=== PATIENT | male | born 1955 | race Caucasian/White ===

== ENCOUNTER 2017-03-04 21:43 | Emergency (ER) | payer BC ==
[2017-03-04] MEDS ORDERED: Oxymetazoline HCl 0.05% ( 15 ML ) ONE (21:59)
== END 2017-03-04 22:25 | disposition home or self-care (01) ==
LOC: SCSER 21:43
DX: R04.0 Epistaxis (principal); E03.9 Hypothyroidism, unspecified; Z85.850 Personal history of malignant neoplasm of thyroid; F17.290 Nicotine dependence, other tobacco product, uncomplicated
CPT/HCPCS: 30901

== ENCOUNTER 2018-08-02 08:42 | Outpatient (CLI) | payer BC ==
--- NOTE | 2018-08-02 09:53 | CT ---
Exam: CT angiogram of the chest HISTORY: Aortic root enlargement suggested on recent cardiac echo. COMPARISON: None TECHNIQUE: CT angiogram of the chest is performed in the axial plane. Three-dimensional reformatted i mages are submitted for interpretation FINDINGS: Mediastinum: Anterior mediastinum has a 2.9 x 2.2 cm soft tissue mass. There is associated punctate c alcifications. HEART: Normal size. No significant pericardial fluid. Aorta: No aneurysm or dissection Upper solid abdominal viscera: No abnormality enhancement. Trachea and central bronchi: Patent Pleural spaces: No effusion Lung parenchyma: No masses or consolidation. Pneumothorax: None Osseous structures: No lytic or blastic lesions Pulmonary arteries: Adequate contrast opacification pulmonary arterial system to the level of central pulmonary arteries. No filling defect to suggest pulmonary embolism IMPRESSION: 1. No evidence of aneurysmal dilatation of the aorta, including the aortic root. 2. Soft tissue mass in the mediastinum may represent an enlarged lymph node, presumably metastatic. T hymic tumor cannot be excluded. Results of study discussed with Dr. Ramachandran 08/02/2018 9:45 AM Code CR
== END 2018-08-02 08:43 | disposition home or self-care (01) ==
LOC: SCSCT 08:42
PROVIDERS: ATTEND Internal Medicine Cardiovascular Disease
DX: I77.89 Other specified disorders of arteries and arterioles (principal); J98.59 Other diseases of mediastinum, not elsewhere classified
CPT/HCPCS: 71275; 82565

== ENCOUNTER 2018-12-31 14:36 | Emergency (ER) | payer BC ==
[~2018-12-31 14:36] MED LIST: Iopamidol 370 76% 100 ML VIAL ONE
--- NOTE | 2018-12-31 15:16 | RAD ---
EXAM: Chest Two Views 12/31/2018 3:12 PM HISTORY: Chest pain COMPARISON: CTA of the thorax dated August 02, 2018 FINDINGS: Heart: Normal in size and contour. Pulmonary vessels: Normal. Costophrenic angles: Clear. Lungs: There are bilateral pulmonary nodules now demonstrated suspicious for pulmonary metastatic dis ease. One of the largest is seen within the right upper lobe measuring 2.4 cm. Pneumothorax: None. Osseous structures:Intact. Additional findings: There is a enlarged anterior mediastinal mass measuring 12.4 x 11 cm. IMPRESSION: Enlarging anterior mediastinal mass with interval development of bilateral pulmonary metastatic lesio ns. Dedicated CT of the thorax with IV contrast is recommended for additional characterization.
[2018-12-31 15:28] LABS: #Basophils 0.1 thou/uL (0.0-0.2); #Eosinphils 0.2 thou/uL (0.0-0.7); #Lymphocytes 1.9 thou/uL (1.20-3.40); #Monocytes 0.8 thou/uL (0.11-0.59); #Neutrophils 7.4 thou/uL (1.40-6.50); %Basophils 0.9 % (0.0-1.0); %Eosinophils 2.3 % (0.0-10.0); %Lymphocytes 18.5 % (21.0-51.0); %Monocytes 7.3 % (0.0-10.0); Hemoglobin 14.9 g/dL (14.0-18.0); Mean Corpuscular HGB CONC 35.1 g/dL (32.0-36.0); Mean Corpuscular Hemoglobin 31.5 pg (27.0-31.0); Mean Corpuscular Volume 89.9 fL (78.0-98.0); Mean Platelet Volume 6.9 fL (7.4-10.4); Platelet Count 263 thou/uL (130-400); RBC Distribution Width 12.6 % (11.5-14.5); Red Blood Cell (RBC) Count 4.71 mill/uL (4.70-6.10); White Blood Cell (WBC) Count 10.4 thou/uL (4.8-10.8)
[2018-12-31] MEDS ORDERED: Fentanyl 100 MCG/2 ML VIAL ONE (15:44)
[2018-12-31 15:55] LABS: ALT (SGPT) 13 U/L (8-55); AST (SGOT) 16 U/L (5-34); Albumin 4.6 g/dL (3.4-4.8); Alkaline Phosphatase 92 U/L (40-110); Anion Gap 12 mmol/L (10-20); BUN (Urea Nitrogen) 16 mg/dL (8.4-25.7); Bilirubin, Total 0.6 mg/dL (0.2-1.2); CK (CPK) 57 U/L (30-200); Calc. Creatinine Clearance 0 mL/min (70-130); Calcium 9.3 mg/dL (7.8-10.44); Carbon Dioxide 27 mmol/L (23-31); Chloride 101 mmol/L (98-107); Estimated GFR-MDRD 78; Glucose 111 mg/dL (80-115); Lipase 22 U/L (8-78); Potassium 3.9 mmol/L (3.5-5.1); Protein, Total 6.6 g/dL (5.8-8.1); Sodium 136 mmol/L (136-145)
[2018-12-31] MEDS ORDERED: Bisacodyl 10 MG SUPP PR PRN (16:23)
[2018-12-31] MEDS ORDERED: Senokot S 8.6-50 MG TAB PO PRN (16:23)
[2018-12-31] MEDS ORDERED: Acetaminophen 325 MG TAB PO PRN (16:23)
[2018-12-31] MEDS ORDERED: Guaifenesin DM 100-10/5 ML UDCUP PO PRN (16:23)
--- NOTE | 2018-12-31 16:44 | CT ---
Chest abdomen and pelvic CT scan with IV contrast: HISTORY: Lung metastasis, mediastinal mass recent right sided chest pain COMPARISON: CT angiogram chest 08/02/2018 FINDINGS: Huge 6.6 x 10.6 cm diameter anterior mediastinal mass markedly increasing in size from the prior stud y at which time it was 2.2 x 2.9 cm. Extensive bilateral new pulmonary metastasis up to 3.9 cm in the right lower lobe, pleural-based. There are several small poorly defined low-attenuation densities within the liver up to approximately 1.1 cm in size, nonspecific, conceivably these could represent very early metastasis. Gallbladder and common duct, pancreas, spleen, adrenal glands are un remarkable. No evidence for renal calculus or acute obstruction. Scattered colonic diverticulosis without acute diverticulitis. Normal-appearing appendix. No retroperitoneal or pelvic adenopathy. No evidence for definitive bone metastasis. IMPRESSION: Large anterior mediastinal mass showing marked increase in size. Extensive new pulmonary metastasis as above. CODE T
[2018-12-31] MEDS ORDERED: Famotidine 20 MG TAB PO SCH (21:00)
[2019-01-01] MEDS ORDERED: Enoxaparin Sodium 40 MG/0.4 ML SYRINGE SC SCH (09:00)
== END 2018-12-31 18:38 | disposition home or self-care (01) ==
LOC: ERS 14:36
DX: J98.59 Other diseases of mediastinum, not elsewhere classified (principal); C78.01 Secondary malignant neoplasm of right lung; E03.9 Hypothyroidism, unspecified; Z85.850 Personal history of malignant neoplasm of thyroid; Z87.891 Personal history of nicotine dependence; Z79.899 Other long term (current) drug therapy
CPT/HCPCS: 36415; 71046; 71260; 74177; 80053; 82550; 83690; 83880; 84443; 84484; 85025; 85379; 93005; 96361; 96374; J3010; Q9967

== ENCOUNTER 2019-02-03 21:35 | Inpatient (IN) | payer BC, MEDICARE ==
[2019-02-03 23:20] LABS: Hemoglobin 10.9 g/dL (14.0-18.0); Mean Corpuscular HGB CONC 33.9 g/dL (32.0-36.0); Mean Corpuscular Hemoglobin 30.2 pg (27.0-31.0); Mean Corpuscular Volume 89.1 fL (78.0-98.0); White Blood Cell (WBC) Count 0.4 thou/uL (4.8-10.8)
[2019-02-03 23:21] LABS: Mean Platelet Volume 7.1 fL (7.4-10.4); Platelet Count 71 thou/uL (130-400); Platelet Morphology Comment Appears Decreased
[2019-02-03 23:27] LABS: ALT (SGPT) 61 U/L (8-55); AST (SGOT) 47 U/L (5-34); Albumin 3.3 g/dL (3.4-4.8); Alkaline Phosphatase 118 U/L (40-110); Anion Gap 11 mmol/L (10-20); BUN (Urea Nitrogen) 14 mg/dL (8.4-25.7); Bilirubin, Total 0.7 mg/dL (0.2-1.2); Calc. Creatinine Clearance 0 mL/min (70-130); Calcium 8.1 mg/dL (7.8-10.44); Carbon Dioxide 26 mmol/L (23-31); Chloride 104 mmol/L (98-107); Estimated GFR-MDRD Greater than 90; Globulin 2.2 g/dL (2.4-3.5); Glucose 142 mg/dL (80-115); Lipase 13 U/L (8-78); Potassium 3.8 mmol/L (3.5-5.1); Protein, Total 5.5 g/dL (5.8-8.1); Sodium 137 mmol/L (136-145)
[2019-02-03] MEDS ORDERED: Cefepime 2 GM VIAL ONE (23:42)
--- NOTE | 2019-02-04 00:01 | RAD ---
2 views of the chest: 02/04/2019 COMPARISON: 12/31/2018 HISTORY: Fever FINDINGS: There is a large mass within the right mid lung zone medially/right hilar region, measuring approximately 17-18 cm in craniocaudal dimension, increased from the prior study at which time it measured 11 cm. Multiple bilateral pulmonary nodules are noted, enlarged since the prior exam. Small bilateral pleural effusions are noted. Drainage catheter overlies the right lung base. Right-sided PICC terminates at the level of the cavoatrial junction. IMPRESSION: Large mass within the right hemithorax, enlarged since the prior exam. Multiple enlarging pulmonary nodules. Findings are consistent with aggressive malignancy. No pneumothorax noted on either side.
[2019-02-04 01:50] VITALS: BMI 28.1
[2019-02-04] MEDS ORDERED: Acetaminophen 325 MG TAB PO PRN (02:31)
[2019-02-04] MEDS ORDERED: Prochlorperazine Maleate 5 MG TAB PO PRN (04:44)
[2019-02-04] MEDS ORDERED: Ondansetron ODT 8 MG TAB PO PRN (04:44)
[2019-02-04] MEDS ORDERED: Morphine IR Tab 15 MG TAB PO PRN (04:44)
[2019-02-04] MEDS: Cefepime 2 GM in Sodium Chloride 0.9% 100 ML IVPB SCH ×3 (05:32→22:09)
--- NOTE | 2019-02-04 05:37 | HP ---
PRIMARY CARE PHYSICIAN: Dr. Jamison. ONCOLOGIST: Dr. William Way at [facility] in [place]. CHIEF COMPLAINT: Fever at home. HISTORY OF PRESENT ILLNESS: Mr. Anthony is a 64-year-old gentleman, who has a history of sarcoma. He is currently receiving treatment at [facility]. He had his 1st round of chemotherapy on January 25 and apparently the treatment is a one day treatment, which is every 21 days. He recently went back to [facility] in order to have what he called the chest tube challenge in order to see whether or not the chest tube could be removed as he had recently developed a pneumothorax after having a biopsy. He said they were able to remove the chest tube. He does have an indwelling Hero catheter in order to drain a malignant pleural effusion. He had the chest tube removed and he was doing well until about 8:45 yesterday morning when he developed a fever. His temperature was 102. At that time, he had been having a cough off and on, which was initially productive of some whitish phlegm, but is now a dry cough. He also notes some pain on the right side of his chest, but he attributes that to the pleural effusion. Otherwise, he does not have any other complaints such as visual change. No sore throat. No rhinorrhea. No abdominal pain. He does admit to having some diarrhea over the last 3 days, which has been watery but no blood, but prior to this he had been constipated and had been taking MiraLAX and Senna before the diarrhea started. When he was evaluated in the ER, he was found to have a white blood cell count of 0.4 as well as a low platelet count, and that along with the fever, he is being admitted for a neutropenic fever. REVIEW OF SYSTEMS: All systems were reviewed and are negative except for that mentioned in the history of present illness. PAST MEDICAL HISTORY: Significant for sarcoma. He also has a history of papillary carcinoma of thyroid and hypothyroidism secondary to that. PAST SURGICAL HISTORY: He has had a thyroidectomy and radioactive iodine treatment for the thyroid cancer. ALLERGIES: NO KNOWN DRUG ALLERGIES. SOCIAL HISTORY: He is . He smoked cigars in the past and he occasionally drinks alcohol, glass of wine once a month or so. FAMILY HISTORY: Significant for cancer in his mother and a sister who is diabetic. CURRENT MEDICATIONS: Include: 1. Carafate 1 g q.i.d. 2. Zofran 8 mg q.8 hours as needed. 3. GlycoLax or MiraLAX 17 g daily. 4. Benicar 10 mg daily. 5. Morphine sulfate, the extended release 15 mg twice daily and immediate release morphine 7.5 mg q.4 as needed. 6. Levothyroxine 150 mcg p.o. daily. 7. Latanoprost 75 mcg in each eye daily. 8. Allopurinol 300 mg daily. 9. Albuterol inhaler. PHYSICAL EXAMINATION: GENERAL: He is alert and oriented. He appears to be in no acute distress. He is well developed and well nourished. VITAL SIGNS: Blood pressure was 144/74, heart rate 92, respiratory rate of 20 and temperature was 101.3. HEENT: Pupils are equal, round, and reactive. Extraocular muscles are intact. His sclerae are anicteric. THROAT: There is no erythema, no exudates. NECK: No adenopathy no bruits. LUNGS: It is basically clear to auscultation. He had what sounds like rales or possibly a friction rub at both bases and there was no wheezing, no rhonchi. CARDIOVASCULAR: He had a normal S1 and S2. There was no S3 or S4. No murmurs, clicks, or rubs. ABDOMEN: Obese, it is soft, nontender, and nondistended. Positive for bowel sounds. No rebound. No guarding. No organomegaly. EXTREMITIES: He had trace calf edema. There was no calf tenderness and no joint effusions. NEUROLOGIC: The exam is grossly normal and nonfocal. EXTREMITIES: There is no clubbing, cyanosis. No edema. LABORATORY DATA: White blood cell count was 0.4, hemoglobin 10.9, hematocrit is 32.1, and platelet count was 71. Sodium is 137, potassium 3.8, chloride is 104, CO2 is 26, BUN of 14, creatinine 0.84, glucose is 142, alkaline phosphatase is 118. IMAGING: He had a new chest x-ray, which demonstrated an enlarging right mediastinal mass with a large right pleural effusion by my reading and also had a CT scan of the abdomen and pelvis in which there was evidence of large anterior mediastinal mass and extensive new pulmonary metastatic disease. ASSESSMENT: This is a pleasant 64-year-old gentleman, who presents to the emergency room with neutropenic fever, the etiology of which is unclear. However, he has had some diarrhea which will need to be evaluated and the pleural fluid is a potential area, which could become infected. He will be admitted to Oncology, started on broad-spectrum IV antibiotics. Blood cultures have already been done from the ER. We will also get urine cultures and also see if we can culture the fluid from the pleural space. We will consult ID as well as Oncology to transportation museum helper in the management. 1. We will continue his medications for symptom management with regard to his cancer including the MS Contin and the immediate release morphine. 2. Hypothyroidism. He appears to be clinically euthyroid. We will go ahead and restart Synthroid at his previous dose. Job ID: [id number]
[2019-02-04 06:05] LABS: Bacteria/HPF None Seen HPF (None Seen); Bilirubin Negative (Negative); Blood, Urine Negative (Negative); Clarity Clear (Clear); Glucose, Urine (Dipstick) Normal (Negative); Leukocyte Negative Leu/uL (Negative); Nitrite Negative (Negative); Protein, Urine (Dipstick) Negative (Neg-Trace); RBC/HPF 0-3 HPF (0-3); Squamous Epithelial 0-3 HPF (0-3); Urobilinogen Normal mg/dL (Less than 2); WBC/HPF 0-3 HPF (0-3)
[2019-02-04] MEDS: Vancomycin 1.5 GRAM/300 ML BAG 1.5 GM in Premix Bag 1 BAG IVPB SCH ×2 (06:08→17:09)
[2019-02-04] MEDS: Levothyroxine 150 MCG TAB PO SCH (06:12)
[2019-02-04] MEDS: Morphine ER 15 MG TAB PO SCH ×2 (08:50→20:09)
[2019-02-04] MEDS: Allopurinol 300 MG TAB PO SCH (08:51)
[2019-02-04] MEDS: Acetaminophen 325 MG TAB PO PRN ×2 (08:51→18:51)
[2019-02-04] MEDS: Polyethylene Glycol 3350 17 GM Packet PO SCH (08:52)
[2019-02-04] MEDS: Sucralfate 1 GM/10 ML UDCUP PO SCH ×4 (08:52→20:10)
[2019-02-04] MEDS: Losartan 25 MG TAB PO SCH (08:52)
[2019-02-04] MEDS ORDERED: Enoxaparin Sodium 30 MG/0.3 ML SYRINGE SC SCH (09:00)
[2019-02-04] MEDS ORDERED: Prevnar 13-Val Conj/PF 0.5 ML SYRINGE IM ONE (09:00)
[2019-02-04] MEDS ORDERED: Vancomycin HCl 1 GM in Premix Bag 1 BAG IVPB SCH (09:00)
[2019-02-04] MEDS ORDERED: Cefepime 2 GM in Sodium Chloride 0.9% 100 ML IVPB SCH (12:00)
[2019-02-04] MEDS: Senokot S 8.6-50 MG TAB PO PRN (13:44)
[2019-02-04 14:37] LABS: Hemoglobin 9.9 g/dL (14.0-18.0); Mean Corpuscular HGB CONC 33.1 g/dL (32.0-36.0); Mean Corpuscular Hemoglobin 29.8 pg (27.0-31.0); Mean Corpuscular Volume 89.9 fL (78.0-98.0); Mean Platelet Volume 7.8 fL (7.4-10.4); Platelet Count 54 thou/uL (130-400); Red Blood Cell (RBC) Count 3.31 mill/uL (4.70-6.10); White Blood Cell (WBC) Count 0.5 thou/uL (4.8-10.8)
--- NOTE | 2019-02-04 15:48 | CON ---
DATE OF CONSULTATION: 02/04/2019 REASON FOR CONSULTATION: Neutropenia with fever. HISTORY OF PRESENT ILLNESS: A 64-year-old with history of hypothyroidism and prior thyroid cancer due to papillary carcinoma, diagnosed and treated in 1996. More recently, he was diagnosed with metastatic mediastinal sarcoma, which is being treated at [facility] with doxorubicin and dacarbazine. The patient received his 1st course through a PICC line in the right upper extremity and now has developed neutropenia with fever and was admitted and started on broad-spectrum coverage. The patient recently also has had problems related to the malignancy with right- sided refractory pleural effusion, requiring a PleurX catheter placement. He had a pneumothorax from the biopsy in the left side, which required a chest tube placement, which has been removed recently. Currently, Mr. Anthony actually looks pretty good. He is awake and oriented, with no distress. No headaches, visual symptoms, sore throat, odynophagia, or dysphagia. No cough, sputum production, or chest pain. No dyspnea. No abdominal pain or diarrhea. No genitourinary symptoms. No joint symptoms. No skin disorder. He does not have Aldana catheter. Voiding without difficulty. No neurological symptoms. MEDICAL HISTORY: 1. Thyroid cancer, in remission after treatment in 1996. 2. Hypothyroidism. 3. Recently diagnosed mediastinal sarcoma, on chemotherapy. 4. 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 ALLERGY HISTORY: Negative. CURRENT MEDICATIONS: Include; 1. P.r.n. medications. 2. Vancomycin. 3. Cefepime. 4. MiraLAX. 5. Zofran. 6. MS Contin. 7. Cozaar. 8. Synthroid. 9. Xalatan. 10. Zyloprim. FAMILY HISTORY: Noncontributory. 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 He quit smoking 10 years prior and used to chew tobacco, but quit. Drinks occasionally. PHYSICAL EXAMINATION: VITAL SIGNS: T-max 101.5 and now 98.5. Other vital signs are essentially normal. O2 saturation 94. GENERAL: He appears in no distress. SKIN: A PleurX catheter on right side. The site where the chest tube had been placed, now removed. PICC line in the right upper extremity, double-lumen. No lymphadenopathy. HEENT: Ocular movements conjugate. Sclerae white. Pupils are equal. Oral cavity normal. Numerous teeth in place. No periodontitis. NECK: Supple. No jugular vein distention or carotid bruits. No thyromegaly. LUNGS: Diminished breath sounds at the bases on the right side. The left side appears normal. No crackles or wheezing. CARDIAC: S1 and S2. Regular rate. No S3 or S4. ABDOMEN: Soft, not distended or tender. No ascites. No bladder distention. No organomegaly. EXTREMITIES: No joint inflammatory activity. Trace edema in lower extremities. Pulses 1+ in dorsalis pedis. Cap refill less than 3 seconds. Moves extremities equally. NEUROLOGIC: Cognitive function appears to be intact. LABORATORY DATA: White cell count 0.4, hemoglobin 10.9, MCV 89, and platelets 71. Sodium 137 creatinine 0.84 with AST 47, ALT 61, alkaline phosphatase 118, albumin 3.3, and globulin 2.2. Urinalysis was normal. Microbiology, we have 2 sets of blood cultures pending. Chest x-ray with a large mass within the right hemithorax, larger than the previous exam, and multiple enlarging pulmonary nodules. No pneumothorax noted. ASSESSMENT: Metastatic sarcoma, on chemotherapy, 1st course with neutropenic fever. A PleurX catheter right side for management of refractory pleural effusion and PICC line in place. PLAN: Continue cefepime, vancomycin. Typically with doxorubicin, dacarbazine, the course of neutropenia has short-lived, predictably quick recovery and eligibility for discharge planning on oral antimicrobial therapy. Complications related to the PleurX catheter and with infection and PICC line complications are not apparent, but we will continue monitoring cultures. No other sites of involvement are apparent at this time. Job ID: [id number] [facility]
--- NOTE | 2019-02-04 16:44 | CON ---
DATE OF CONSULTATION: REASON FOR CONSULT: Neutropenic fever. HISTORY OF PRESENT ILLNESS: Mr. 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 He is a patient of [facility] and received his first round of doxorubicin and dacarbazine on January 25. He did have Neulasta on January 26. He has had a malignant pleural effusion and complications with biopsy including a pneumothorax and chest tube placement. He was just discharged from [facility], I believe day before yesterday. He developed a temperature of 102 yesterday and presented to the emergency room for evaluation. His white count was 400, hemoglobin was 10.9, and platelet count was 71,000. His physician at [facility] was contacted and decision was made to start on empiric antibiotics and admitted for further treatment. The patient has had an appointment with Dr. Nur tomorrow to establish care in order for us to do blood draws and transfusions as needed. He currently is resting comfortably. Denies any complaints, although he does state that he feels like his fever is starting to return with 101.5 early this morning. PAST MEDICAL HISTORY: 1. Sarcoma. 2. Papillary carcinoma of the thyroid. 3. Hypothyroidism. PAST SURGICAL HISTORY: Thyroidectomy. ALLERGIES: NO KNOWN DRUG ALLERGIES. HOME MEDICATIONS: 1. Allopurinol. 2. Combivent. 3. Synthroid. 4. Morphine IR. 5. Morphine ER. 6. Benicar. 7. Zofran. 8. MiraLAX. 9. Compazine. 10. Senna. 11. Carafate. FAMILY HISTORY: His mother had cancer. SOCIAL HISTORY: , has grown children. Lives with his . No current alcohol, tobacco, or illicit drug use. REVIEW OF SYSTEMS: A 10-point review of systems is negative except for noted in HPI. PHYSICAL EXAMINATION: VITAL SIGNS: Temperature is 98.5, pulse is 66, respiratory rate 18, BP is 120/63, and 94% on 2 L. GENERAL: This is a well-developed, well-nourished male, in no acute distress. HEENT: Normocephalic and atraumatic. Pupils are equal and reactive to light. Wears glasses. NECK: Supple. CV: Regular rate and rhythm. LUNGS: Clear. He has a [place] catheter in his right axilla area. ABDOMEN: Soft and nontender. Bowel sounds are positive. EXTREMITIES: 1+ bilateral lower extremity edema. SKIN: No rash. HEMATOLOGICAL: No petechiae or purpura. NEUROLOGIC: Nonfocal. PSYCH: He is alert, oriented, and appropriate. PERTINENT LABS AND X-RAYS: Current WBCs are 0.5, hemoglobin 9.9, hematocrit 29.7, and platelet count 54,000. Sodium is 137, potassium 3.8, chloride 104, CO2 is 26, BUN is 14, creatinine 0.84, lactic acid 1.2, calcium 8.1, bilirubin 0.7, AST is 47, ALT is 61, alkaline phosphatase is 118. Serum total protein is 5.5, albumin 3.3, globulin 2.2, and lipase is 13. Urine is negative. Preliminary blood cultures negative. ASSESSMENT: 1. Sarcoma status post cycle 1 of chemotherapy with Neulasta support. 2. Neutropenic fever. DISCUSSION: The patient is placed on cefepime and vancomycin. Blood cultures initially are negative. I expect that his white count will improve over the next 24 to 36 hours as he did receive Neulasta. His appointment with Dr. Nur will be rescheduled to next week. Continue neutropenic precautions. No other further recommendations at this time. Job ID: [id number]
[2019-02-04] MEDS: Latanoprost 0.005% Ophth Soln 2.5 ml Bottle EA EYE SCH (22:08)
[2019-02-05] MEDS: Acetaminophen 325 MG TAB PO PRN ×2 (03:39→20:22)
[2019-02-05] MEDS: Levothyroxine 150 MCG TAB PO SCH (05:11)
[2019-02-05] MEDS: Cefepime 2 GM in Sodium Chloride 0.9% 100 ML IVPB SCH ×3 (05:12→21:20)
[2019-02-05 06:25] LABS: Hemoglobin 10.3 g/dL (14.0-18.0); Mean Corpuscular HGB CONC 33.4 g/dL (32.0-36.0); Mean Corpuscular Hemoglobin 30.1 pg (27.0-31.0); Mean Corpuscular Volume 89.9 fL (78.0-98.0); Mean Platelet Volume 8.2 fL (7.4-10.4); Platelet Count 51 thou/uL (130-400); RBC Distribution Width 11.9 % (11.5-14.5); Red Blood Cell (RBC) Count 3.41 mill/uL (4.70-6.10); White Blood Cell (WBC) Count 0.7 thou/uL (4.8-10.8)
[2019-02-05] MEDS: Vancomycin 1.5 GRAM/300 ML BAG 1.5 GM in Premix Bag 1 BAG IVPB SCH ×2 (06:37→18:22)
[2019-02-05 06:38] LABS: Platelet Morphology Comment Appears Decreased
[2019-02-05 06:45] LABS: ALT (SGPT) 94 U/L (8-55); AST (SGOT) 60 U/L (5-34); Albumin 3.1 g/dL (3.4-4.8); Alkaline Phosphatase 121 U/L (40-110); Anion Gap 12 mmol/L (10-20); BUN (Urea Nitrogen) 11 mg/dL (8.4-25.7); Bilirubin, Total 0.6 mg/dL (0.2-1.2); Calc. Creatinine Clearance 125 mL/min (70-130); Calcium 8.4 mg/dL (7.8-10.44); Carbon Dioxide 25 mmol/L (23-31); Chloride 105 mmol/L (98-107); Estimated GFR-MDRD Greater than 90; Globulin 2.4 g/dL (2.4-3.5); Glucose 135 mg/dL (80-115); Phosphorus 2.1 mg/dL (2.3-4.7); Potassium 3.5 mmol/L (3.5-5.1); Protein, Total 5.5 g/dL (5.8-8.1); Sodium 138 mmol/L (136-145)
[2019-02-05] MEDS: Sucralfate 1 GM/10 ML UDCUP PO SCH ×4 (08:29→20:23)
[2019-02-05] MEDS: Morphine ER 15 MG TAB PO SCH ×2 (08:30→20:22)
[2019-02-05] MEDS: Allopurinol 300 MG TAB PO SCH (08:30)
[2019-02-05] MEDS: Losartan 25 MG TAB PO SCH (08:31)
[2019-02-05] MEDS: Polyethylene Glycol 3350 17 GM Packet PO SCH (08:34)
[2019-02-05] MEDS ORDERED: K-Phos Neutral 250 MG TAB PO SCH (09:15)
[2019-02-05 10:34] LABS: Band 5 % (5-11); Lymphocytes 68 % (21-51); Monocytes 10 % (0-10); Myelocyte 3 % (0-0); Neutrophil 10 % (42-75); Reactive Lymphocytes 5 % (0-10)
[2019-02-05 10:35] LABS: MDiff Complete? YES; Polychromasia SLIGHT = 2-3 cells (100X) (0-2/hpf)
--- NOTE | 2019-02-05 12:00 | PDOC.HOSPP ---
- Subjective Encounter Date: 02/05/19 Encounter Time: 09:30 Subjective: Patient seen and examined for Neutropenic fever. No new complaints. No overnight events - Objective Vital Signs & Weight: Vital Signs (12 hours) Temp Pulse Resp BP BP Pulse Ox 02/05/19 08:00 98.8 F 68 18 130/65 95 02/05/19 04:00 99.8 F H 02/05/19 00:00 98.9 F 75 16 145/72 H 94 L Weight Admit Weight 196 lb 5 oz Weight 196 lb 5 oz I&O: 02/04/19 02/05/19 02/06/19 06:59 06:59 06:59 Intake Total 460 1440 Output Total 300 Balance 160 1440 Result Diagrams: 02/05/19 06:00 02/05/19 06:00 Radiology Reviewed by me: Yes (CXR - no infiltrate) Hospitalist ROS - Review of Systems Cardiovascular: denies: chest pain, palpitations, orthopnea, paroxysmal noc. dyspnea, edema, light headedness, other Gastrointestinal: denies: nausea, vomiting, abdominal pain, diarrhea, constipation, melena, hematochezia, other - Medication Medications: Active Medications Generic Name Dose Route Start Last Admin Trade Name Freq PRN Reason Stop Dose Admin Acetaminophen 650 mg 02/04/19 04:44 02/05/19 03:39 Tylenol PO 650 mg Q4H PRN Administration Headache/Fever/Mild Pain (1-3) Allopurinol 300 mg 02/04/19 09:00 02/05/19 08:30 Zyloprim PO 300 mg DAILY NILDA Administration Cefepime HCl 2 gm/ Sodium 100 mls @ 200 mls/hr 02/04/19 06:00 02/05/19 05:12 Chloride IVPB 100 mls Q8HR NILDA Administration Vancomycin HCl 1.5 gm/ Device 300 mls @ 200 mls/hr 02/04/19 06:00 02/05/19 06 :37 IVPB 300 mls 0600,1800 NILDA Administration Latanoprost 1 drop 02/04/19 21:00 02/04/19 22:08 Xalatan 0.005% Ophth Soln EA EYE 1 drop HS NILDA Administration Levothyroxine Sodium 150 mcg 02/04/19 06:00 02/05/19 05:11 Synthroid PO 150 mcg 0600 NILDA Administration Losartan Potassium 25 mg 02/04/19 09:00 02/05/19 08:31 Cozaar PO 25 mg DAILY NILDA Administration Morphine Sulfate 15 mg 02/04/19 09:00 02/05/19 08:30 Ms Contin PO 15 mg BID NILDA Administration Ondansetron HCl 8 mg 02/04/19 04:44 02/05/19 05:11 Zofran Odt PO 8 mg Q8HR PRN Administration Nausea Polyethylene Glycol 17 gm 02/04/19 09:00 02/05/19 08:34 Miralax PO Not Given DAILY NILDA Senna/Docusate Sodium 2 tab 02/04/19 04:44 02/04/19 13:44 Senokot S PO 2 tab BID PRN Administration Constipation Sodium Chloride 10 ml 02/04/19 09:00 02/05/19 08:35 Flush - Normal Saline IV 10 ml DAILY NILDA Administration Sucralfate 1 gm 02/04/19 09:00 02/05/19 08:29 Carafate PO 1 gm QID NILDA Administration - Exam General Appearance: NAD Heart: RRR, no gallops Respiratory: CTAB, no rales Gastrointestinal: soft, non-tender, normal bowel sounds Extremities: no edema Hosp A/P - Plan DVT proph w/SCDs Neutropenic fever Hypophosphatemia Abn LFTs Sarcoma Hypothyroidism Chronic pain syndrome Former smoker PLAN: 02/05 Replace Phosphorus Cont Vancomycin/Zosyn Monitor LFTs Neutropenic precautions
[2019-02-05] MEDS: K-Phos Neutral 250 MG TAB PO SCH ×2 (12:17→18:18)
[2019-02-05] MEDS ORDERED: Sterile Water 10 ML VIAL IVP SCH (16:42)
[2019-02-05] MEDS: Activase 2 MG VIAL CATH SCH ×2 (16:52→16:56)
[2019-02-05 18:11] LABS: Vancomycin, Trough 9.7 ug/mL
[2019-02-05 18:41] LABS: Band 14 % (5-11); Eosinophils 2 % (0-10); Hemoglobin 10.3 g/dL (14.0-18.0); Lymphocytes 52 % (21-51); MDiff Complete? YES; Mean Corpuscular HGB CONC 33.7 g/dL (32.0-36.0); Mean Corpuscular Hemoglobin 30.1 pg (27.0-31.0); Mean Corpuscular Volume 89.2 fL (78.0-98.0); Mean Platelet Volume 8.6 fL (7.4-10.4); Metamyelocyte 3 % (0-0); Monocytes 6 % (0-10); Neutrophil 3 % (42-75); Platelet Count 63 thou/uL (130-400); Platelet Morphology Comment Appears Decreased; Polychromasia SLIGHT = 2-3 cells (100X) (0-2/hpf); RBC Distribution Width 12.1 % (11.5-14.5); Reactive Lymphocytes 20 % (0-10); Red Blood Cell (RBC) Count 3.42 mill/uL (4.70-6.10); White Blood Cell (WBC) Count 1.4 thou/uL (4.8-10.8)
[2019-02-05] MEDS: Vancomycin HCl 1.25 GM in Sodium Chloride 0.9% 250 ML 250 ML IVPB SCH (19:31)
[2019-02-05] MEDS: Senokot S 8.6-50 MG TAB PO PRN (20:22)
[2019-02-05] MEDS: Latanoprost 0.005% Ophth Soln 2.5 ml Bottle EA EYE SCH (20:23)
[2019-02-06] MEDS: Vancomycin HCl 1.25 GM in Sodium Chloride 0.9% 250 ML 250 ML IVPB SCH (02:09)
[2019-02-06 05:34] LABS: Band 16 % (5-11); Eosinophils 1 % (0-10); Lymphocytes 48 % (21-51); MDiff Complete? YES; Mean Corpuscular HGB CONC 33.1 g/dL (32.0-36.0); Mean Corpuscular Hemoglobin 29.7 pg (27.0-31.0); Mean Corpuscular Volume 89.7 fL (78.0-98.0); Mean Platelet Volume 8.5 fL (7.4-10.4); Metamyelocyte 1 % (0-0); Monocytes 11 % (0-10); Myelocyte 2 % (0-0); Neutrophil 19 % (42-75); Platelet Count 70 thou/uL (130-400); Platelet Morphology Comment Appears Decreased; RBC Distribution Width 12.1 % (11.5-14.5); Reactive Lymphocytes 2 % (0-10); Red Blood Cell (RBC) Count 3.37 mill/uL (4.70-6.10); White Blood Cell (WBC) Count 2.1 thou/uL (4.8-10.8)
[2019-02-06 05:48] LABS: ALT (SGPT) 80 U/L (8-55); AST (SGOT) 36 U/L (5-34); Albumin 2.8 g/dL (3.4-4.8); Alkaline Phosphatase 113 U/L (40-110); Anion Gap 9 mmol/L (10-20); BUN (Urea Nitrogen) 8 mg/dL (8.4-25.7); Bilirubin, Total 0.4 mg/dL (0.2-1.2); Calc. Creatinine Clearance 120 mL/min (70-130); Calcium 8.3 mg/dL (7.8-10.44); Carbon Dioxide 29 mmol/L (23-31); Chloride 104 mmol/L (98-107); Estimated GFR-MDRD Greater than 90; Globulin 2.2 g/dL (2.4-3.5); Glucose 125 mg/dL (80-115); Phosphorus 2.3 mg/dL (2.3-4.7); Potassium 3.4 mmol/L (3.5-5.1); Sodium 139 mmol/L (136-145)
[2019-02-06] MEDS: Levothyroxine 150 MCG TAB PO SCH (05:50)
[2019-02-06] MEDS: Cefepime 2 GM in Sodium Chloride 0.9% 100 ML IVPB SCH (05:50)
[2019-02-06] MEDS: Allopurinol 300 MG TAB PO SCH (08:15)
[2019-02-06] MEDS: Losartan 25 MG TAB PO SCH (08:15)
[2019-02-06] MEDS: Morphine ER 15 MG TAB PO SCH (08:15)
[2019-02-06] MEDS: Sucralfate 1 GM/10 ML UDCUP PO SCH (08:18)
[2019-02-06] MEDS: Polyethylene Glycol 3350 17 GM Packet PO SCH (08:19)
[2019-02-06] MEDS: K-Phos Neutral 250 MG TAB PO SCH (08:19)
[2019-02-06 09:44] VITALS: BP 135/68; TEMP 98.6
--- NOTE | 2019-02-06 10:37 | PDOC.MOPN ---
Interval History: patient seen. Complains of nausea. - Vital Signs Vital Signs: Vital Signs (12 hours) Temp Pulse Resp BP Pulse Ox 02/06/19 08:00 98.6 F 73 18 135/68 93 L 02/06/19 02:19 98.5 F Weight Admit Weight 196 lb 5 oz Weight 196 lb 5 oz - Labs Result Diagrams: 02/06/19 04:21 02/06/19 04:21 Lab results: Laboratory Results - last 24 hr 02/06/19 04:21: WBC 2.1 L, RBC 3.37 L, Hgb 10.0 L, Hct 30.2 L, MCV 89.7, MCH 29.7, MCHC 33.1, RDW 12.1, Plt Count 70 L, MPV 8.5, Neutrophils % (Manual) 19 L , Band Neuts % (Manual) 16 H, Lymphocytes % (Manual) 48, Reactive Lymphs % 2, Monocytes % (Manual) 11 H, Eosinophils % (Manual) 1, Metamyelocytes % (Man) 1 H , Myelocytes % 2 H, Plt Morphology Comment Appears Decreased L 02/06/19 04:21: Sodium 139, Potassium 3.4 L, Chloride 104, Carbon Dioxide 29, Anion Gap 9 L, BUN 8 L, Creatinine 0.77, Estimated GFR (MDRD) Greater than 90, Glucose 125 H, Calcium 8.3, Phosphorus 2.3, Magnesium 2.0, Total Bilirubin 0.4, AST 36 H, ALT 80 H, Alkaline Phosphatase 113 H, Serum Total Protein 5.0 L, Albumin 2.8 L, Globulin 2.2 L, Albumin/Globulin Ratio 1.3 02/05/19 17:27: WBC 1.4 L, RBC 3.42 L, Hgb 10.3 L, Hct 30.5 L, MCV 89.2, MCH 30.1, MCHC 33.7, RDW 12.1, Plt Count 63 L, MPV 8.6, Neutrophils % (Manual) 3 L, Band Neuts % (Manual) 14 H, Lymphocytes % (Manual) 52 H, Reactive Lymphs % 20 H , Monocytes % (Manual) 6, Eosinophils % (Manual) 2, Metamyelocytes % (Man) 3 H, Plt Morphology Comment Appears Decreased L, Polychromasia SLIGHT = 2-3 cells 02/05/19 17:27: Vancomycin Trough 9.7 A/P - Problem (1) Sarcoma Current Visit: Yes Code(s): C49.9 - MALIGNANT NEOPLASM OF CONNECTIVE AND SOFT TISSUE, UNSP Status: Acute (2) Neutropenia with fever Current Visit: Yes Code(s): D70.9 - NEUTROPENIA, UNSPECIFIED; R50.81 - FEVER PRESENTING WITH CONDITIONS CLASSIFIED ELSEWHERE Status: Acute - Plan Plan: WBC improved Continue nausea medication. Likely home in am.
--- NOTE | 2019-02-06 11:26 | PDOC.MOPN ---
Interval History: Afebrile, no complaints. - Vital Signs Vital Signs: Vital Signs (12 hours) Temp Pulse Resp BP Pulse Ox 02/06/19 08:00 98.6 F 73 18 135/68 93 L 02/06/19 02:19 98.5 F Weight Admit Weight 196 lb 5 oz Weight 196 lb 5 oz - Physical Exam General: Alert, Oriented x3, No acute distress HEENT: Atraumatic, PERRLA, EOMI, Mucous membr. moist/pink Lungs: Other Cardiovascular: Regular rate, Normal S1, Normal S2, No murmurs, Gallops, Rubs Abdomen: Normal bowel sounds, Soft, No tenderness, No hepatospenomegaly, No masses Extremities: No clubbing, No cyanosis, No edema, Normal pulses, No tenderness/ swelling Skin: No rashes, No breakdown, No significant lesion Neurological: Normal gait, Normal speech, Strength at 5/5 X4 ext, Normal tone, Sensation intact, Cranial nerves 3-12 NL, Reflexes 2+ Psych/Mental Status: Mental status NL, Mood NL - Labs Result Diagrams: 02/06/19 04:21 02/06/19 04:21 Lab results: Laboratory Results - last 24 hr 02/06/19 04:21: WBC 2.1 L, RBC 3.37 L, Hgb 10.0 L, Hct 30.2 L, MCV 89.7, MCH 29.7, MCHC 33.1, RDW 12.1, Plt Count 70 L, MPV 8.5, Neutrophils % (Manual) 19 L , Band Neuts % (Manual) 16 H, Lymphocytes % (Manual) 48, Reactive Lymphs % 2, Monocytes % (Manual) 11 H, Eosinophils % (Manual) 1, Metamyelocytes % (Man) 1 H , Myelocytes % 2 H, Plt Morphology Comment Appears Decreased L 02/06/19 04:21: Sodium 139, Potassium 3.4 L, Chloride 104, Carbon Dioxide 29, Anion Gap 9 L, BUN 8 L, Creatinine 0.77, Estimated GFR (MDRD) Greater than 90, Glucose 125 H, Calcium 8.3, Phosphorus 2.3, Magnesium 2.0, Total Bilirubin 0.4, AST 36 H, ALT 80 H, Alkaline Phosphatase 113 H, Serum Total Protein 5.0 L, Albumin 2.8 L, Globulin 2.2 L, Albumin/Globulin Ratio 1.3 02/05/19 17:27: WBC 1.4 L, RBC 3.42 L, Hgb 10.3 L, Hct 30.5 L, MCV 89.2, MCH 30.1, MCHC 33.7, RDW 12.1, Plt Count 63 L, MPV 8.6, Neutrophils % (Manual) 3 L, Band Neuts % (Manual) 14 H, Lymphocytes % (Manual) 52 H, Reactive Lymphs % 20 H , Monocytes % (Manual) 6, Eosinophils % (Manual) 2, Metamyelocytes % (Man) 3 H, Plt Morphology Comment Appears Decreased L, Polychromasia SLIGHT = 2-3 cells 02/05/19 17:27: Vancomycin Trough 9.7 Status: lab reviewed by me A/P - Problem (1) Sarcoma Current Visit: Yes Code(s): C49.9 - MALIGNANT NEOPLASM OF CONNECTIVE AND SOFT TISSUE, UNSP Status: Acute (2) Neutropenia with fever Current Visit: Yes Code(s): D70.9 - NEUTROPENIA, UNSPECIFIED; R50.81 - FEVER PRESENTING WITH CONDITIONS CLASSIFIED ELSEWHERE Status: Acute - Plan Plan: Dc home today Call for recurrent fever follow-up Sunday for labs.
--- NOTE | 2019-02-07 08:54 | DIS ---
DATE OF ADMISSION: 02/04/2019 DATE OF DISCHARGE: 02/06/2019 DISCHARGE DISPOSITION: Home. DISCHARGE MEDICATIONS: 1. Levaquin 750 mg daily for seven days. 2. K-Phos 250 mg 3 times daily for next 4 to 5 days. 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 2. Infectious Disease service. The patient was seen on the day of discharge. Denies any new complaints. No chest pain, shortness of breath reported. His appetite is gradually improving. BRIEF HOSPITAL COURSE: The patient is a 64-year-old male with sarcoma, currently on chemotherapy at [facility], presented to the hospital with fever. His temperature at home was 102. His workup was consistent with neutropenic fever. His WBC on admission was 0.4 without any neutrophils. He showed good improvement with IV antibiotics (IV vancomycin and cefepime). Vancomycin level was monitored closely. His appetite gradually improved. His WBC count on the day of discharge is 2.1 with 19% neutrophils and 16% bandemia. He has been cleared by Infectious Disease and Oncology Service for discharge. He had some diarrhea, however, his stool workup was essentially negative. His blood cultures, urine culture and pleural fluid culture from PleurX catheter have been negative so far. Primary care physician is advised to follow up the final cultures. He appears stable for discharge. He had some electrolyte abnormalities including hypokalemia and hypophosphatemia, which were replaced. FINAL DIAGNOSES: 1. Sepsis secondary to neutropenic fever, present on admission, resolved. 2. Hypokalemia, replaced. 3. Hypophosphatemia. 4. Slightly abnormal LFTs probably secondary to recent chemotherapy. His maximum AST was 60, maximum ALT was 94 and maximum alkaline phosphatase was 121. The numbers improved on the day of discharge. 5. Former smoker. 6. Chronic pain syndrome. 7. Sarcoma, currently on chemotherapy. 8. Hypothyroidism. 9. Anemia. 10. Thrombocytopenia. PLAN: Plan was discussed with the patient and the family in detail. They stated understanding. Job ID: [id number]
== END 2019-02-06 12:50 | disposition home or self-care (01) | DRG 809 ==
LOC: ERS 21:35 → ONC 02-04 01:48
PROVIDERS: ADMIT Internal Medicine; ATTEND Internal Medicine
DX: D70.9 Neutropenia, unspecified (principal); C78.1 Secondary malignant neoplasm of mediastinum; C78.01 Secondary malignant neoplasm of right lung; C79.02 Secondary malignant neoplasm of left kidney and renal pelvis; J91.0 Malignant pleural effusion; R50.81 Fever presenting with conditions classified elsewhere; E03.9 Hypothyroidism, unspecified; G89.4 Chronic pain syndrome; E83.39 Other disorders of phosphorus metabolism; Z85.850 Personal history of malignant neoplasm of thyroid; Z87.891 Personal history of nicotine dependence; Z79.890 Hormone replacement therapy; Z79.899 Other long term (current) drug therapy
CPT/HCPCS: 36415; 71046; 80053; 80202; 81001; 83605; 83630; 83690; 83735; 84100; 85007; 85025; 85027; 87040; 87070; 87086; 87205; 87324; 87328; 87329; 87427; 87449; 90471; 90670; 96365; G0009; J0692; J2997; J3370; J3490; J7050

== ENCOUNTER 2019-04-04 13:49 | Day surgery (SDC) | payer BC ==
[2019-04-04] MEDS ORDERED: diphenhydrAMINE 25 MG CAP PO SCH (14:30)
[2019-04-04] MEDS ORDERED: Acetaminophen 500 MG TAB PO SCH (14:30)
[2019-04-04 16:01] VITALS: BMI 26.8
[2019-04-05 00:11] LABS: #Basophils 0.1 thou/uL (0.0-0.2); #Eosinphils 0.2 thou/uL (0.0-0.7); #Lymphocytes 1.9 thou/uL (1.20-3.40); #Monocytes 1.3 thou/uL (0.11-0.59); #Neutrophils 14.3 thou/uL (1.40-6.50); %Basophils 0.5 % (0.0-1.0); %Eosinophils 0.9 % (0.0-10.0); %Lymphocytes 10.7 % (21.0-51.0); %Monocytes 7.1 % (0.0-10.0); %Neutrophils 80.8 % (42.0-75.0); Hemoglobin 9.5 g/dL (14.0-18.0); Mean Corpuscular Volume 85.8 fL (78.0-98.0); Mean Platelet Volume 6.9 fL (7.4-10.4); Platelet Count 141 thou/uL (130-400); RBC Distribution Width 15.6 % (11.5-14.5); Red Blood Cell (RBC) Count 3.17 mill/uL (4.70-6.10); White Blood Cell (WBC) Count 17.8 thou/uL (4.8-10.8)
[2019-04-05 08:51] VITALS: BP 142/87; TEMP 98.1
== END 2019-04-05 09:38 | disposition home or self-care (01) ==
LOC: ONC/OP 13:49 → ONC 13:51 → ONC/OP 04-05 09:38
PROVIDERS: ATTEND Internal Medicine Medical Oncology
PROC: 30233N1 Transfusion of Nonautologous Red Blood Cells into Peripheral Vein, Percutaneous Approach (ICD-10-PCS; principal; 2019-04-04)
DX: D64.9 Anemia, unspecified (principal); D69.6 Thrombocytopenia, unspecified
CPT/HCPCS: 36415; 36430; 80053; 82248; 83615; 84100; 84550; 85025; 86850; 86900; 86901; P9016; Q0163

== ENCOUNTER 2019-04-27 09:18 | Day surgery (SDC) | payer BC ==
[2019-04-27] MEDS ORDERED: Acetaminophen 500 MG TAB PO SCH (10:15)
[2019-04-27] MEDS ORDERED: diphenhydrAMINE 25 MG CAP PO SCH (10:15)
[2019-04-27 18:39] VITALS: BP 122/66; TEMP 98.7
[2019-04-27 19:23] LABS: Anisocytosis SLIGHT = 6-15 cells (100X) (0-5/hpf); Band 37 % (5-11); Hemoglobin 9.4 g/dL (14.0-18.0); Lymphocytes 8 % (21-51); MDiff Complete? YES; Mean Corpuscular HGB CONC 34.8 g/dL (32.0-36.0); Mean Corpuscular Hemoglobin 29.6 pg (27.0-31.0); Mean Platelet Volume 7.1 fL (7.4-10.4); Metamyelocyte 3 % (0-0); Monocytes 7 % (0-10); Myelocyte 4 % (0-0); Neutrophil 38 % (42-75); Ovalocytes SLIGHT = 2-5 cells (100X) (0-1/hpf); Platelet Count 109 thou/uL (130-400); Platelet Morphology Comment Appears Decreased; Polychromasia MODERATE = 3-4 cells (100X) (0-2/hpf); RBC Distribution Width 15.3 % (11.5-14.5); Reactive Lymphocytes 3 % (0-10); Red Blood Cell (RBC) Count 3.17 mill/uL (4.70-6.10); Tear Drops SLIGHT = 2-5 cells (100X) (0-1/hpf)
== END 2019-04-27 19:51 | disposition home or self-care (01) ==
LOC: SDC 09:18 → UNDOADMIN 09:18 → SURG A 09:18 → UNDODISIN 19:51 → SDC 19:51 → EDSTATUS 23:15
PROVIDERS: ATTEND Internal Medicine Hematology & Oncology
PROC: 30233N1 Transfusion of Nonautologous Red Blood Cells into Peripheral Vein, Percutaneous Approach (ICD-10-PCS; principal; 2019-04-27)
DX: D64.9 Anemia, unspecified (principal); D69.6 Thrombocytopenia, unspecified
CPT/HCPCS: 36415; 36430; 80053; 82248; 83615; 84100; 84550; 85025; 86850; 86900; 86901; P9016; Q0163

== ENCOUNTER 2019-05-12 20:38 | Inpatient (IN) | payer BC ==
[2019-05-12] MEDS ORDERED: Cefepime 2 GM VIAL ONE ×2 (21:28→21:30)
[2019-05-12] MEDS ORDERED: Acetaminophen 500 MG TAB ONE (21:29)
[2019-05-12 21:58] LABS: PTT 32.1 SEC (22.9-36.1); Prothrombin Time 12.9 SEC (12.0-14.7)
--- NOTE | 2019-05-12 22:11 | RAD ---
AP CHEST: Indications: Fever Comparison: 02-04-19 FINDINGS: A right chest mass has been previously described. Comparison is made to chest CT of 12-31-18 and plain film of 02-04-19. Previous exam also showed bilateral pulmonary nodules which appear to have resolve d. The mass overlying the right hilum which is shown to represent mass in the anterior right chest on CT remains. There is no evidence of vascular congestion or acute infiltrate. A PICC line through the right upper extremity appears to cross the midline and overlies the mediastin um, presumably within the left brachiocephalic vein. IMPRESSION: Density right chest consistent with previously described mass. No evidence of acute infiltrate. Right upper extremity PICC line has tip crossing the midline. POS: [facility]
[2019-05-12 22:16] LABS: ALT (SGPT) 9 U/L (8-55); AST (SGOT) 6 U/L (5-34); Albumin 3.6 g/dL (3.4-4.8); Alkaline Phosphatase 73 U/L (40-110); Anion Gap 11 mmol/L (10-20); BUN (Urea Nitrogen) 34 mg/dL (8.4-25.7); Bilirubin, Total 0.8 mg/dL (0.2-1.2); CK (CPK) 10 U/L (30-200); Calc. Creatinine Clearance 0 mL/min (70-130); Calcium 7.6 mg/dL (7.8-10.44); Carbon Dioxide 22 mmol/L (23-31); Chloride 103 mmol/L (98-107); Estimated GFR-MDRD 40; Globulin 1.6 g/dL (2.4-3.5); Glucose 145 mg/dL (80-115); Potassium 3.2 mmol/L (3.5-5.1); Protein, Total 5.2 g/dL (5.8-8.1); Sodium 133 mmol/L (136-145)
[2019-05-12] MEDS ORDERED: Vancomycin 1 GM/200 ML BAG ONE (22:19)
[2019-05-12 22:43] LABS: Anisocytosis SLIGHT = 6-15 cells (100X) (0-5/hpf); Hemoglobin 8.8 g/dL (14.0-18.0); MDiff Complete? YES; Mean Corpuscular HGB CONC 34.9 g/dL (32.0-36.0); Mean Corpuscular Hemoglobin 30.5 pg (27.0-31.0); Mean Corpuscular Volume 87.3 fL (78.0-98.0); Mean Platelet Volume 10.6 fL (7.4-10.4); Platelet Count 25 thou/uL (130-400); Platelet Morphology Comment Appears Decreased; RBC Distribution Width 15.1 % (11.5-14.5); Red Blood Cell (RBC) Count 2.87 mill/uL (4.70-6.10); White Blood Cell (WBC) Count 0.3 thou/uL (4.8-10.8)
[2019-05-13] MEDS ORDERED: Ondansetron ODT 4 MG TAB SL PRN (00:39)
[2019-05-13] MEDS ORDERED: Ondansetron PF 4 MG/2 ML Vial IVP PRN (00:39)
[2019-05-13] MEDS ORDERED: Acetaminophen 325 MG TAB PO PRN ×2 (00:39→04:53)
[2019-05-13] MEDS ORDERED: Sodium Chloride 0.9% 1,000 ML IV SCH (00:45)
[2019-05-13 00:54] LABS: Lactic Acid 1.4 mmol/L (0.5-2.2)
[2019-05-13 02:01] LABS: Bacteria/HPF None Seen HPF (None Seen); Bilirubin Negative (Negative); Blood, Urine Negative (Negative); Clarity Clear (Clear); Glucose, Urine (Dipstick) Normal (Negative); Leukocyte Negative Leu/uL (Negative); Nitrite Negative (Negative); Protein, Urine (Dipstick) 30 mg/dL (Neg-Trace); RBC/HPF 0-3 HPF (0-3); Squamous Epithelial None Seen HPF (0-3); Urobilinogen Normal mg/dL (Less than 2); WBC/HPF 0-3 HPF (0-3)
[2019-05-13 02:02] LABS: Urine Culture Reflex No No
[2019-05-13] MEDS ORDERED: Ondansetron ODT 4 MG TAB PO PRN ×2 (04:53)
[2019-05-13] MEDS ORDERED: hydrALAZINE 20 MG/ML VIAL SLOW IVP PRN (04:53)
[2019-05-13] MEDS ORDERED: HYDROmorphone 2 MG TAB PO PRN (04:53)
--- NOTE | 2019-05-13 05:30 | HP ---
The patient does not have a primary care physician. He sees Dr. Nur locally. CHIEF COMPLAINT: Fever and low white blood cell count. HISTORY OF PRESENT ILLNESS: Mr. 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 He is on his third or fourth round of chemotherapy. He gets the therapy at [facility]. His last treatment ended on Sunday and he got out of the hospital on Sunday and he recently had lab work done. His knew that his blood counts had been low at about 0.5 and as a result, she started checking his temperature and on the day of admission, the temperature had gone up to 101.3, and she was concerned and brought him in. He has had no complaints. However, other than just feeling a little bit nauseated, there has been no sore throat. No cough. No congestion. No chest pain. No abdominal pain. No diarrhea. No skin breakdown. No dysuria. However, the temperature was verified to be 101.4, and his white blood cell count was 0.3 with neutrophils being undetectable. REVIEW OF SYSTEMS: All systems were reviewed and are negative except for that mentioned in the history of present illness. PAST MEDICAL HISTORY: Significant for germ-cell tumor, papillary carcinoma of the thyroid, and hypothyroidism. PAST SURGICAL HISTORY: He has had a thyroidectomy and radioactive iodine as well as a PICC line placed. ALLERGIES: NO KNOWN DRUG ALLERGIES. SOCIAL HISTORY: He is . He is a nonsmoker and nondrinker. He would like to be a DNR. FAMILY HISTORY: Significant for cancer and diabetes mellitus. CURRENT MEDICATIONS: Include; 1. Carafate 1 g q.i.d. 2. Docusate sodium. 3. Potassium chloride 20 mEq daily. 4. Protonix 40 mg daily. 5. Zofran 8 mg q.8 as needed. 6. Remeron 15 mg at bedtime. 7. Reglan 10 mg q.i.d. 8. Ritalin 10 mg b.i.d. 9. Loratadine 10 mg daily. 10. Levothyroxine 150 mcg p.o. daily. 11. Latanoprost eyedrops. 12. K-Phos Neutral 500 mg twice a day. 13. Dilaudid 2 mg q.4 as needed. 14. Fentanyl every 3 days. 15. Lovenox 120 mg at bedtime. 16. Norvasc 10 mg daily. 17. Amiodarone 200 mg daily. 18. Allopurinol 300 mg daily. PHYSICAL EXAMINATION: GENERAL: He is alert and oriented. He appears to be in no acute distress. He is well developed and well nourished. VITAL SIGNS: Blood pressure was 138/72, heart rate 80, respiratory rate of 18, temperature is 99.6, and O2 saturation is 97% on room air. HEENT: Pupils are equal, round, and reactive. Extraocular muscles are intact. His sclerae are anicteric. Throat, no erythema, no exudates. NECK: No adenopathy. No bruits. LUNGS: Clear to auscultation. There is no wheezing, no rales, no rhonchi. CARDIOVASCULAR: He has a normal S1, S2. There is no S3 or S4. No murmurs, clicks, or rubs. ABDOMEN: Obese. It is soft. He did have some mild right mid-epigastric to upper quadrant tenderness. No rebound, no guarding, however. No organomegaly. EXTREMITIES: There is no clubbing or cyanosis. No edema. NEUROLOGIC: The exam is grossly nonfocal. SKIN AND INTEGUMENT: No skin changes. No rash. LABORATORY DATA: Lab results; sodium is 133, potassium 3.2, chloride is 103, CO2 is 22, BUN of 34, creatinine 1.17, glucose is 145. TSH was 6.03. White blood cell count 0.3, hemoglobin 8.8, hematocrit is 25.1, and platelet count is 25. Urinalysis is essentially negative. Chest x-ray was negative for any infiltrate or effusion, that is by my reading. ASSESSMENT: 1. This is a pleasant 64-year-old gentleman, who presents to the emergency room with neutropenic fever. He will be admitted to Oncology, started on empiric IV antibiotics. Blood and urine cultures should have been already done from the ER. We will consult his oncologist for further recommendations and keep him in reverse isolation or neutropenic precautions. 2. Hypothyroidism. He appears to be potentially under-replaced. His TSH is elevated. We will get a free T4 this morning with the a.m. labs and he may need an adjustment on his thyroid medication. 3. The patient will not be placed on deep venous thrombosis prophylaxis due to his low platelet count and use Protonix for gastrointestinal prophylaxis. Job ID: [id number]
[2019-05-13] MEDS: Levothyroxine 150 MCG TAB PO SCH (05:46)
[2019-05-13 07:35] LABS: Anion Gap 12 mmol/L (10-20); BUN (Urea Nitrogen) 29 mg/dL (8.4-25.7); Calc. Creatinine Clearance 59 mL/min (70-130); Calcium 7.8 mg/dL (7.8-10.44); Carbon Dioxide 21 mmol/L (23-31); Chloride 105 mmol/L (98-107); Estimated GFR-MDRD 49; Glucose 114 mg/dL (80-115); Hemoglobin 8.3 g/dL (14.0-18.0); Mean Corpuscular HGB CONC 34.9 g/dL (32.0-36.0); Mean Corpuscular Hemoglobin 30.4 pg (27.0-31.0); Mean Corpuscular Volume 87.3 fL (78.0-98.0); Mean Platelet Volume 10.2 fL (7.4-10.4); Platelet Count 18 thou/uL (130-400); Red Blood Cell (RBC) Count 2.73 mill/uL (4.70-6.10); Sodium 135 mmol/L (136-145); White Blood Cell (WBC) Count 0.3 thou/uL (4.8-10.8)
[2019-05-13 08:25] LABS: MDiff Complete? YES; Ovalocytes SLIGHT = 2-5 cells (100X) (0-1/hpf); Platelet Morphology Comment Appears Decreased; Polychromasia SLIGHT = 2-3 cells (100X) (0-2/hpf)
[2019-05-13] MEDS ORDERED: Magnesium Oxide 250 MG TAB PO SCH (09:00)
[2019-05-13] MEDS ORDERED: Vancomycin 1 GM in Premix Bag 1 BAG IVPB SCH (09:00)
[2019-05-13] MEDS: Cefepime 2 GM in Sodium Chloride 0.9% 100 ML IVPB SCH ×2 (09:26→16:54)
[2019-05-13] MEDS: Amlodipine 10 MG TAB PO SCH (09:27)
[2019-05-13] MEDS: Sucralfate 1 GM/10 ML UDCUP PO SCH ×4 (09:28→21:41)
[2019-05-13] MEDS: Amiodarone 200 MG TAB PO SCH (09:28)
[2019-05-13] MEDS: Metoclopramide HCl 10 MG TAB PO PRN ×2 (09:28→17:42)
[2019-05-13] MEDS: Allopurinol 300 MG TAB PO SCH (09:28)
[2019-05-13] MEDS: K-Phos Neutral 250 MG TAB PO SCH ×2 (10:04→18:02)
[2019-05-13] MEDS: Vancomycin 1.5 GRAM/300 ML BAG 1.5 GM in Premix Bag 1 BAG IVPB SCH (11:59)
[2019-05-13] MEDS ORDERED: Senokot S 8.6-50 MG TAB PO PRN (12:49)
[2019-05-13] MEDS: Ondansetron PF 4 MG/2 ML Vial IVP PRN ×2 (14:13→20:06)
[2019-05-13] MEDS: Sodium Chloride 0.9% 1,000 ML IV SCH (16:55)
[2019-05-13] MEDS: Nystatin 500,000 UNITS/5 ML UDCUP PO SCH ×2 (16:55→21:08)
--- NOTE | 2019-05-13 18:48 | CON ---
DATE OF CONSULTATION: REASON FOR CONSULTATION: Neutropenic fever. HISTORY OF PRESENT ILLNESS: Mr. Anthony is a 64-year-old gentleman with high-grade mediastinal sarcoma, germ-cell tumor. He is a patient of [facility] Riz[facility] and recently completed a 5-day regimen consisting of cisplatin, ifosfamide, and etoposide. He gets labs in our clinic twice a week and has been getting IV hydration. He presented to our clinic yesterday and had a white count of 0.5 and platelet count of 39,000, but had no fever. His states when he got home, he began to have a low-grade temperature of around 100.3. He came to the emergency room for further evaluation. In the emergency room, his temperature was 101.4, his white count was 0.3. He was admitted for neutropenic fever, started on empiric antibiotics and IV hydration. PAST MEDICAL HISTORY: 1. High-grade germ-cell sarcoma. 2. Papillary carcinoma of the thyroid. 3. Hypothyroidism. PAST SURGICAL HISTORY: 1. Thyroidectomy. 2. MediPort placement. ALLERGIES: NO KNOWN DRUG ALLERGIES. HOME MEDICATIONS: 1. Amiodarone. 2. Norvasc. 3. Lovenox. 4. Fentanyl. 5. Dilaudid. 6. Indocin. 7. K-Phos. 8. Claritin. 9. Magnesium. 10. Ritalin. 11. Reglan. 12. Remeron. 13. Zofran. 14. Protonix. 15. Potassium chloride. FAMILY HISTORY: His mother had unknown cancer. SOCIAL HISTORY: , has grown children, lives with his . No current alcohol, tobacco or illicit drug use. REVIEW OF SYSTEMS: Positive for fatigue, otherwise negative. PHYSICAL EXAMINATION: VITAL SIGNS: Temperature is 97.8, pulse is 86, respiratory rate is 18, and BP is 119/66. He is 95% on room air. GENERAL: This is a chronically ill-appearing male, in no acute distress. HEENT: Normocephalic and atraumatic. Pupils are equal and reactive to light. NECK: Supple. CV: Regular rate and rhythm. LUNGS: Clear. ABDOMEN: Soft and nontender. Bowel sounds are positive. EXTREMITIES: No clubbing or cyanosis. SKIN: No rash. HEMATOLOGICAL: No petechiae or purpura. NEUROLOGICAL: Nonfocal. PERTINENT LABS AND X-RAYS: Current WBCs are 0.3, hemoglobin is 8.3, hematocrit is 23.8, and platelet count is 18,000. Sodium is 135, potassium is 3.0, chloride is 105, CO2 is 21, BUN is 29, creatinine is 1.44. Lactic acid is 1.4. Calcium is 7.8. Bilirubin is 0.8, AST is 6, ALT is 9, alk phos is 73. Serum total protein is 5.2, albumin is 3.6, and globulin is 1.6. ASSESSMENT: 1. Neutropenic fever. 2. Germ-cell tumor status post cycle 3 of VIP chemotherapy with Neulasta support. DISCUSSION: The patient is on IV fluids and antibiotics. I believe he did receive Neulasta after chemotherapy. His white count should improve over the next day or so. We will continue IV hydration and recheck his labs in the morning. Thank you for the consult. Job ID: [id number]
[2019-05-13] MEDS ORDERED: COMBIVENT RESPIMAT INH SCH (20:45)
[2019-05-13] MEDS: Prochlorperazine Maleate 5 MG TAB PO PRN (20:52)
[2019-05-13] MEDS: Latanoprost 0.005% Ophth Soln 2.5 ml Bottle EA EYE SCH (21:03)
[2019-05-13] MEDS: Magnesium Oxide 250 MG TAB PO SCH (21:39)
[2019-05-13] MEDS: Senokot S 8.6-50 MG TAB PO SCH (21:39)
[2019-05-13] MEDS: Mirtazapine 15 MG TAB PO SCH (21:39)
[2019-05-14] MEDS: COMBIVENT RESPIMAT INH SCH ×4 (00:02→17:42)
[2019-05-14] MEDS: Cefepime 2 GM in Sodium Chloride 0.9% 100 ML IVPB SCH ×3 (00:02→15:45)
[2019-05-14] MEDS: Sodium Chloride 0.9% 1,000 ML IV SCH ×2 (00:06→11:02)
[2019-05-14] MEDS: Levothyroxine 150 MCG TAB PO SCH (06:05)
[2019-05-14 06:33] LABS: Hemoglobin 7.4 g/dL (14.0-18.0); Mean Corpuscular HGB CONC 36.1 g/dL (32.0-36.0); Mean Corpuscular Hemoglobin 31.5 pg (27.0-31.0); Mean Corpuscular Volume 87.1 fL (78.0-98.0); Mean Platelet Volume 13.5 fL (7.4-10.4); Platelet Count 10 thou/uL (130-400); RBC Distribution Width 14.4 % (11.5-14.5); Red Blood Cell (RBC) Count 2.37 mill/uL (4.70-6.10); White Blood Cell (WBC) Count 0.7 thou/uL (4.8-10.8)
[2019-05-14 06:44] LABS: Anion Gap 11 mmol/L (10-20); BUN (Urea Nitrogen) 25 mg/dL (8.4-25.7); Calc. Creatinine Clearance 64 mL/min (70-130); Calcium 7.7 mg/dL (7.8-10.44); Carbon Dioxide 22 mmol/L (23-31); Chloride 108 mmol/L (98-107); Estimated GFR-MDRD 53; Glucose 108 mg/dL (80-115); Sodium 138 mmol/L (136-145)
[2019-05-14 06:54] LABS: Potassium 2.7 mmol/L (3.5-5.1)
[2019-05-14] MEDS ORDERED: POTASSIUM CHLORIDE 10 MEQ CAP PO SCH (07:30)
[2019-05-14] MEDS: Polyethylene Glycol 3350 17 GM Packet PO SCH (07:50)
[2019-05-14] MEDS: Ondansetron PF 4 MG/2 ML Vial IVP PRN ×3 (07:51→19:44)
[2019-05-14] MEDS: Metoclopramide HCl 10 MG TAB PO PRN (07:52)
[2019-05-14] MEDS ORDERED: Potassium Chloride 20 MEQ TAB PO SCH ×2 (08:00→15:15)
[2019-05-14] MEDS: Sucralfate 1 GM/10 ML UDCUP PO SCH ×4 (08:27→21:09)
[2019-05-14] MEDS: Nystatin 500,000 UNITS/5 ML UDCUP PO SCH ×4 (08:28→21:07)
[2019-05-14] MEDS: POTASSIUM CHLORIDE 10 MEQ CAP PO SCH ×2 (09:20→16:47)
[2019-05-14] MEDS: Magnesium Oxide 250 MG TAB PO SCH ×2 (09:21→21:28)
[2019-05-14] MEDS: Senokot S 8.6-50 MG TAB PO SCH ×2 (09:21→21:28)
[2019-05-14] MEDS: K-Phos Neutral 250 MG TAB PO SCH ×2 (09:21→16:45)
[2019-05-14] MEDS: Allopurinol 300 MG TAB PO SCH (09:21)
[2019-05-14] MEDS: Amlodipine 10 MG TAB PO SCH (09:21)
[2019-05-14] MEDS: Amiodarone 200 MG TAB PO SCH (09:21)
[2019-05-14] MEDS: Loratadine 10 MG TAB PO SCH (09:23)
[2019-05-14 09:27] LABS: Lymphocytes 92 % (21-51); MDiff Complete? YES; Monocytes 4 % (0-10); Neutrophil 4 % (42-75); Platelet Morphology Comment Appears Decreased; Polychromasia SLIGHT = 2-3 cells (100X) (0-2/hpf)
--- NOTE | 2019-05-14 09:45 | PDOC.MOPN ---
Interval History: emesis last night. no bleeding. - Vital Signs Vital Signs: Vital Signs (12 hours) Temp Pulse Resp BP BP Pulse Ox 05/14/19 09:21 79 05/14/19 03:47 98.8 F 79 16 116/53 L 94 L 05/13/19 23:59 99.7 F H 83 16 113/62 96 Weight Admit Weight 180 lb 8 oz Weight 182 lb - Physical Exam General: Alert, Oriented x3, No acute distress HEENT: Atraumatic, PERRLA, EOMI, Mucous membr. moist/pink Extremities: No clubbing, No cyanosis, No edema, Normal pulses, No tenderness/ swelling Skin: No rashes, No breakdown, No significant lesion Neurological: Normal gait, Normal speech, Strength at 5/5 X4 ext, Normal tone, Sensation intact, Cranial nerves 3-12 NL, Reflexes 2+ Psych/Mental Status: Mental status NL, Mood NL - Labs Result Diagrams: 05/14/19 06:08 05/14/19 06:08 Lab results: Laboratory Results - last 24 hr 05/14/19 06:08: WBC 0.7 L*, RBC 2.37 L, Hgb 7.4 L, Hct 20.6 L, MCV 87.1, MCH 31.5 H, MCHC 36.1 H, RDW 14.4, Plt Count 10 L*, MPV 13.5 H, Neutrophils % ( Manual) 4 L, Lymphocytes % (Manual) 92 H, Monocytes % (Manual) 4, Lymphocytes # Not Reportable, Plt Morphology Comment Appears Decreased L, Polychromasia SLIGHT = 2-3 cells 05/14/19 06:08: Sodium 138, Potassium 2.7 L*, Chloride 108 H, Carbon Dioxide 22 L, Anion Gap 11, BUN 25, Creatinine 1.34 H, Estimated GFR (MDRD) 53, Glucose 108 , Calcium 7.7 L Status: lab reviewed by me A/P - Problem (1) Neutropenia with fever Current Visit: No Code(s): D70.9 - NEUTROPENIA, UNSPECIFIED; R50.81 - FEVER PRESENTING WITH CONDITIONS CLASSIFIED ELSEWHERE Status: Acute (2) Sarcoma Current Visit: No Code(s): C49.9 - MALIGNANT NEOPLASM OF CONNECTIVE AND SOFT TISSUE, UNSP Status: Acute - Plan Plan: 1. WBC improved, neulasta was given with treatment last week 2. Transfuse platelets and 1 unit blood today 3. Recheck CBC in am 4. Hold Lovenox until platelets >50
--- NOTE | 2019-05-14 10:15 | PDOC.HOSPP ---
- Subjective Encounter Date: 05/14/19 Subjective: No new complains Tolerating diet - Objective Vital Signs & Weight: Vital Signs (12 hours) Temp Pulse Resp BP BP Pulse Ox 05/14/19 09:21 79 05/14/19 08:00 98.4 F 65 18 120/65 96 05/14/19 03:47 98.8 F 79 16 116/53 L 94 L 05/13/19 23:59 99.7 F H 83 16 113/62 96 Weight Admit Weight 180 lb 8 oz Weight 182 lb I&O: 05/13/19 05/14/19 05/15/19 06:59 06:59 06:59 Intake Total 2375 1798 Output Total 1000 2350 Balance -1000 25 1798 Result Diagrams: 05/14/19 06:08 05/14/19 06:08 Hospitalist ROS - Medication Medications: Active Medications Generic Name Dose Route Start Last Admin Trade Name Freq PRN Reason Stop Dose Admin Acetaminophen 650 mg 05/13/19 04:53 05/14/19 00:05 Tylenol PO 650 mg Q4H PRN Administration Headache/Fever/Mild Pain (1-3) Allopurinol 300 mg 05/13/19 09:00 05/14/19 09:21 Zyloprim PO 300 mg DAILY NILDA Administration Amiodarone HCl 200 mg 05/13/19 09:00 05/14/19 09:21 Cordarone PO 200 mg DAILY NILDA Administration Amlodipine Besylate 10 mg 05/13/19 09:00 05/14/19 09:21 Norvasc PO 10 mg DAILY NILDA Administration Fentanyl 12 mcg 05/13/19 06:00 05/13/19 05:46 Duragesic TD 12 mcg Q3D@0600 NILDA Administration Cefepime HCl 2 gm/ Sodium 100 mls @ 200 mls/hr 05/13/19 08:00 05/14/19 08:23 Chloride IVPB 100 mls 0800,1600,2359 NILDA Administration Vancomycin HCl 1.5 gm/ Device 300 mls @ 200 mls/hr 05/13/19 12:00 05/13/19 11 :59 IVPB 300 mls 1200 NILDA Administration Sodium Chloride 1,000 mls @ 100 mls/hr 05/13/19 14:00 05/14/19 00:06 Normal Saline 0.9% IV 1,000 mls .Q10H NILDA Administration Latanoprost 1 drop 05/13/19 21:00 05/13/19 21:03 Xalatan 0.005% Ophth Soln EA EYE 1 drop HS NILDA Administration Levothyroxine Sodium 150 mcg 05/13/19 06:00 05/14/19 06:05 Synthroid PO 150 mcg 0600 NILDA Administration Loratadine 10 mg 05/14/19 09:00 05/14/19 09:23 Claritin PO 10 mg DAILY NILDA Administration Magnesium Oxide 500 mg 05/13/19 21:00 05/14/19 09:21 Magnesium Oxide PO 500 mg BID NILDA Administration Methylphenidate HCl 10 mg 05/13/19 07:00 05/14/19 06:57 Ritalin PO 10 mg 0700,1400 NILDA Administration Metoclopramide HCl 10 mg 05/13/19 04:53 05/14/19 07:52 Reglan PO 10 mg QID PRN Administration Nausea Mirtazapine 15 mg 05/13/19 21:00 05/13/19 21:39 Remeron PO 15 mg HS NILDA Administration Nystatin 500,000 units 05/13/19 17:00 05/14/19 08:28 Mycostatin PO Not Given QID NILDA Ondansetron HCl 4 mg 05/13/19 04:53 05/14/19 07:51 Zofran IVP 4 mg Q6H PRN Administration Nausea/Vomiting Pantoprazole Sodium 40 mg 05/13/19 09:00 05/14/19 07:52 Protonix PO 40 mg DAILY NILDA Administration Potassium Chloride 1 each 05/14/19 08:00 05/14/19 09:20 10 Meq Cap PO 1 each BID-WM NILDA Administration Combivent Respimat 1 each 05/13/19 23:59 05/14/19 06:05 20 Mcg/100 Mcg Per INH 1 each Actuation Q6HR NILDA Administration Phosphorus 500 mg 05/13/19 07:30 05/14/19 09:21 Kphos Neutral PO 500 mg BID-AC NILDA Administration Polyethylene Glycol 17 gm 05/14/19 09:00 05/14/19 07:50 Miralax PO Not Given DAILY NILDA Prochlorperazine Maleate 10 mg 05/13/19 14:43 05/13/19 20:52 Compazine PO 10 mg Q6H PRN Administration Nausea/Vomiting Senna/Docusate Sodium 2 tab 05/13/19 21:00 05/14/19 09:21 Senokot S PO 2 tab BID NILDA Administration Sucralfate 1 gm 05/13/19 09:00 05/14/19 08:27 Carafate PO Not Given QID NILDA - Exam General Appearance: awake alert ENT: normocephalic atraumatic Neck: supple, no JVD Heart: RRR, no murmur, no gallops, no rubs, normal peripheral pulses Respiratory: CTAB, no wheezes, no rales, no ronchi, normal chest expansion Gastrointestinal: soft, non-tender, non-distended, normal bowel sounds, no palpable masses Hosp A/P (1) Thrombocytopenia Code(s): D69.6 - THROMBOCYTOPENIA, UNSPECIFIED Status: Acute (2) Anemia Code(s): D64.9 - ANEMIA, UNSPECIFIED Status: Acute (3) Neutropenia with fever Code(s): D70.9 - NEUTROPENIA, UNSPECIFIED; R50.81 - FEVER PRESENTING WITH CONDITIONS CLASSIFIED ELSEWHERE Status: Acute (4) Sarcoma Code(s): C49.9 - MALIGNANT NEOPLASM OF CONNECTIVE AND SOFT TISSUE, UNSP Status : Acute - Plan Continue broad spectrum ABX Transfuse PRBC and Platelets Replace K No lovenox due to thrombocytopenia.
[2019-05-14 11:40] LABS: Vancomycin, Trough 9.4 ug/mL
[2019-05-14] MEDS: Vancomycin 1.5 GRAM/300 ML BAG 1.5 GM in Premix Bag 1 BAG IVPB SCH (12:28)
[2019-05-14] MEDS: Metoclopramide HCl 10 MG TAB PO SCH ×3 (12:29→21:05)
[2019-05-14] MEDS ORDERED: Ondansetron HCl/PF 4 MG in Sodium Chloride 0.9% 50 ML IVPB SCH (20:15)
[2019-05-14] MEDS ORDERED: Ondansetron PF 4 MG/2 ML Vial IVP SCH (21:15)
[2019-05-14] MEDS: Mirtazapine 15 MG TAB PO SCH (21:28)
[2019-05-14] MEDS: Latanoprost 0.005% Ophth Soln 2.5 ml Bottle EA EYE SCH (21:29)
[2019-05-15] MEDS: Cefepime 2 GM in Sodium Chloride 0.9% 100 ML IVPB SCH ×4 (00:21→23:53)
[2019-05-15] MEDS: COMBIVENT RESPIMAT INH SCH ×5 (00:21→23:55)
[2019-05-15] MEDS: Sodium Chloride 0.9% 1,000 ML IV SCH ×2 (03:32→06:00)
[2019-05-15] MEDS: Levothyroxine 150 MCG TAB PO SCH (05:49)
[2019-05-15 06:19] LABS: Hemoglobin 8.1 g/dL (14.0-18.0); Mean Corpuscular HGB CONC 35.2 g/dL (32.0-36.0); Mean Corpuscular Hemoglobin 30.5 pg (27.0-31.0); Mean Corpuscular Volume 86.7 fL (78.0-98.0); Mean Platelet Volume 9.2 fL (7.4-10.4); Platelet Count 24 thou/uL (130-400); Red Blood Cell (RBC) Count 2.65 mill/uL (4.70-6.10); White Blood Cell (WBC) Count 1.3 thou/uL (4.8-10.8)
[2019-05-15 06:28] LABS: Anion Gap 14 mmol/L (10-20); BUN (Urea Nitrogen) 19 mg/dL (8.4-25.7); Calc. Creatinine Clearance 82 mL/min (70-130); Calcium 7.6 mg/dL (7.8-10.44); Carbon Dioxide 21 mmol/L (23-31); Chloride 111 mmol/L (98-107); Estimated GFR-MDRD 71; Glucose 87 mg/dL (80-115); Magnesium 1.1 mg/dL (1.6-2.6); Sodium 143 mmol/L (136-145)
[2019-05-15 08:08] LABS: Band 24 % (5-11); Lymphocytes 48 % (21-51); MDiff Complete? YES; Monocytes 8 % (0-10); Neutrophil 20 % (42-75); Platelet Morphology Comment Appears Decreased; Polychromasia SLIGHT = 2-3 cells (100X) (0-2/hpf)
[2019-05-15] MEDS: Sucralfate 1 GM/10 ML UDCUP PO SCH ×4 (08:51→21:27)
[2019-05-15] MEDS: Metoclopramide HCl 10 MG TAB PO SCH ×4 (08:51→21:20)
[2019-05-15] MEDS: Amiodarone 200 MG TAB PO SCH (08:51)
[2019-05-15] MEDS: Nystatin 500,000 UNITS/5 ML UDCUP PO SCH ×5 (08:51→21:27)
[2019-05-15] MEDS: Polyethylene Glycol 3350 17 GM Packet PO SCH (08:51)
[2019-05-15] MEDS: POTASSIUM CHLORIDE 10 MEQ CAP PO SCH ×2 (08:52→17:21)
[2019-05-15] MEDS: Amlodipine 10 MG TAB PO SCH (08:53)
[2019-05-15] MEDS: Senokot S 8.6-50 MG TAB PO SCH ×2 (08:53→21:27)
[2019-05-15] MEDS: Allopurinol 300 MG TAB PO SCH (08:54)
[2019-05-15] MEDS: Loratadine 10 MG TAB PO SCH (08:54)
[2019-05-15] MEDS: K-Phos Neutral 250 MG TAB PO SCH ×2 (08:58→16:36)
[2019-05-15] MEDS: Magnesium Oxide 250 MG TAB PO SCH ×2 (09:00→21:20)
[2019-05-15] MEDS: Ondansetron PF 4 MG/2 ML Vial IVP PRN (09:10)
[2019-05-15] MEDS ORDERED: Magnesium Sulfate 3 GM in Sodium Chloride 0.9% 100 ML IVPB SCH ×2 (09:30→17:00)
[2019-05-15] MEDS ORDERED: Promethazine HCl 12.5 MG in Sodium Chloride 0.9% 50 ML IVPB PRN (10:46)
--- NOTE | 2019-05-15 10:55 | PDOC.MOPN ---
Interval History: Diarrhea today. - Vital Signs Vital Signs: Vital Signs (12 hours) Temp Pulse Resp BP BP Pulse Ox 05/15/19 08:53 80 136/72 05/15/19 08:44 98.5 F 80 18 136/72 94 L 05/15/19 03:38 98.5 F 71 16 116/69 94 L 05/14/19 23:46 98.8 F 70 16 113/61 94 L Weight Admit Weight 180 lb 8 oz Weight 182 lb - Physical Exam General: Alert, Oriented x3, No acute distress HEENT: Atraumatic, PERRLA, EOMI, Mucous membr. moist/pink Lungs: Clear to auscultation, Normal air movement Cardiovascular: Regular rate, Normal S1, Normal S2, No murmurs, Gallops, Rubs Abdomen: Other Neurological: Normal gait, Normal speech, Strength at 5/5 X4 ext, Normal tone, Sensation intact, Cranial nerves 3-12 NL, Reflexes 2+ - Labs Result Diagrams: 05/15/19 05:52 05/15/19 05:52 Lab results: Laboratory Results - last 24 hr 05/15/19 05:52: Uric Acid 2.3 L 05/15/19 05:52: WBC 1.3 L, RBC 2.65 L, Hgb 8.1 L, Hct 22.9 L, MCV 86.7, MCH 30.5 , MCHC 35.2, RDW 14.0, Plt Count 24 L*, MPV 9.2, Neutrophils % (Manual) 20 L, Band Neuts % (Manual) 24 H, Lymphocytes % (Manual) 48, Monocytes % (Manual) 8, Plt Morphology Comment Appears Decreased L, Polychromasia SLIGHT = 2-3 cells 05/15/19 05:52: Sodium 143, Potassium 3.0 L, Chloride 111 H, Carbon Dioxide 21 L , Anion Gap 14, BUN 19, Creatinine 1.05, Estimated GFR (MDRD) 71, Glucose 87, Calcium 7.6 L, Magnesium 1.1 L 05/14/19 11:05: Vancomycin Trough 9.4 05/14/19 10:00: Blood Type A POSITIVE, Antibody Screen NEGATIVE, Crossmatch See Detail Status: lab reviewed by me A/P - Problem (1) Neutropenia with fever Current Visit: No Code(s): D70.9 - NEUTROPENIA, UNSPECIFIED; R50.81 - FEVER PRESENTING WITH CONDITIONS CLASSIFIED ELSEWHERE Status: Acute (2) Sarcoma Current Visit: No Code(s): C49.9 - MALIGNANT NEOPLASM OF CONNECTIVE AND SOFT TISSUE, UNSP Status: Acute - Plan Plan: 1. Add potassium to IVF 2. continue oral K 3. Additional dose of Mag this pm per [facility] requests 4. phenergan prn 5. Labs in am
[2019-05-15] MEDS: Magnesium Sulfate 3 GM in Sodium Chloride 0.9% 100 ML IVPB SCH ×2 (11:00→17:16)
[2019-05-15 11:17] LABS: Vancomycin, Trough 11.5 ug/mL
[2019-05-15] MEDS: Vancomycin HCl 1.75 GM in Sodium Chloride 0.9% 500 ML IVPB SCH (12:08)
[2019-05-15] MEDS: NS 0.9% w/ 20 MEQ KCL 1,000 ML/1,000 ML BAG IV SCH ×2 (13:00→21:22)
[2019-05-15] MEDS ORDERED: Magnesium 2 GM/50 ML 3 GM in Premix Bag 1 BAG IVPB SCH (17:00)
[2019-05-15] MEDS: Latanoprost 0.005% Ophth Soln 2.5 ml Bottle EA EYE SCH (21:14)
[2019-05-15] MEDS: Mirtazapine 15 MG TAB PO SCH (21:20)
--- NOTE | 2019-05-15 21:48 | PDOC.HOSPP ---
- Objective Vital Signs & Weight: Vital Signs (12 hours) Temp Pulse Resp BP Pulse Ox 05/15/19 20:00 98.1 F 75 18 122/63 94 L 05/15/19 16:50 98.1 F 80 18 135/67 93 L 05/15/19 11:29 98.3 F 75 18 120/68 94 L Weight Admit Weight 180 lb 8 oz Weight 182 lb I&O: 05/14/19 05/15/19 05/16/19 06:59 06:59 06:59 Intake Total 2375 3149 1439 Output Total 2350 3075 350 Balance 25 74 1089 Result Diagrams: 05/15/19 05:52 05/15/19 05:52 Hospitalist ROS - Medication Medications: Active Medications Generic Name Dose Route Start Last Admin Trade Name Freq PRN Reason Stop Dose Admin Acetaminophen 650 mg 05/13/19 04:53 05/14/19 00:05 Tylenol PO 650 mg Q4H PRN Administration Headache/Fever/Mild Pain (1-3) Allopurinol 300 mg 05/13/19 09:00 05/15/19 08:54 Zyloprim PO 300 mg DAILY NILDA Administration Amiodarone HCl 200 mg 05/13/19 09:00 05/15/19 08:51 Cordarone PO 200 mg DAILY NILDA Administration Amlodipine Besylate 10 mg 05/13/19 09:00 05/15/19 08:53 Norvasc PO 10 mg DAILY NILDA Administration Fentanyl 12 mcg 05/13/19 06:00 05/13/19 05:46 Duragesic TD 12 mcg Q3D@0600 NILDA Administration Cefepime HCl 2 gm/ Sodium 100 mls @ 200 mls/hr 05/13/19 08:00 05/15/19 16:32 Chloride IVPB 100 mls 0800,1600,2359 NILDA Administration Potassium Chloride/Sodium Chloride 1,000 ml in 1,000 mls @ 100 mls/hr 10:45 05/15/19 21:22 Ns 0.9% W/ 20 Meq Kcl IV 1,000 mls .Q10H NILDA Administration Promethazine HCl 12.5 mg/ 50.5 mls @ 202 mls/hr 05/15/19 10:46 05/15/19 15:01 Sodium Chloride IVPB 50.5 mls Q6H PRN Administration Nausea Vancomycin HCl 1.75 gm/ Sodium 500 mls @ 333.333 mls/hr 05/15/19 12:00 12:08 Chloride IVPB 500 mls 1200 NILDA Administration Latanoprost 1 drop 05/13/19 21:00 05/15/19 21:14 Xalatan 0.005% Ophth Soln EA EYE 1 drop HS NILDA Administration Levothyroxine Sodium 150 mcg 05/13/19 06:00 05/15/19 05:49 Synthroid PO 150 mcg 0600 NILDA Administration Loratadine 10 mg 05/14/19 09:00 05/15/19 08:54 Claritin PO 10 mg DAILY NILDA Administration Magnesium Oxide 500 mg 05/13/19 21:00 05/15/19 21:20 Magnesium Oxide PO 500 mg BID NILDA Administration Methylphenidate HCl 10 mg 05/13/19 07:00 05/15/19 16:02 Ritalin PO 10 mg 0700,1400 NILDA Administration Metoclopramide HCl 10 mg 05/14/19 13:00 05/15/19 21:20 Reglan PO 10 mg QID NILAD Administration Mirtazapine 15 mg 05/13/19 21:00 05/15/19 21:20 Remeron PO 15 mg HS NILDA Administration Nystatin 500,000 units 05/13/19 17:00 05/15/19 21:27 Mycostatin PO Not Given QID NILDA Ondansetron HCl 4 mg 05/13/19 04:53 05/15/19 09:10 Zofran IVP 4 mg Q6H PRN Administration Nausea/Vomiting Pantoprazole Sodium 40 mg 05/13/19 09:00 05/15/19 08:53 Protonix PO 40 mg DAILY NILDA Administration Potassium Chloride 1 each 05/14/19 08:00 05/15/19 17:21 10 Meq Cap PO 1 each BID-WM NILDA Administration Combivent Respimat 1 each 05/13/19 23:59 05/15/19 18:27 20 Mcg/100 Mcg Per INH 1 each Actuation Q6HR NILDA Administration Phosphorus 500 mg 05/13/19 07:30 05/15/19 16:36 Kphos Neutral PO 500 mg BID-AC NILDA Administration Polyethylene Glycol 17 gm 05/14/19 09:00 05/15/19 08:51 Miralax PO 17 gm DAILY NILDA Administration Prochlorperazine Maleate 10 mg 05/13/19 14:43 05/13/19 20:52 Compazine PO 10 mg Q6H PRN Administration Nausea/Vomiting Senna/Docusate Sodium 2 tab 05/13/19 21:00 05/15/19 21:27 Senokot S PO Not Given BID NILDA Sodium Chloride 10 ml 05/15/19 21:00 05/15/19 21:19 Flush - Normal Saline IVF 10 ml Q12HR NILDA Administration Sucralfate 1 gm 05/13/19 09:00 05/15/19 21:27 Carafate PO Not Given QID NILDA - Exam General Appearance: awake alert ENT: normocephalic atraumatic Neck: supple, no JVD Heart: RRR, no murmur, no gallops, no rubs Respiratory: CTAB, no wheezes, no rales, no ronchi Gastrointestinal: soft, non-tender, non-distended, normal bowel sounds Hosp A/P (1) Neutropenia with fever Code(s): D70.9 - NEUTROPENIA, UNSPECIFIED; R50.81 - FEVER PRESENTING WITH CONDITIONS CLASSIFIED ELSEWHERE Status: Acute (2) Thrombocytopenia Code(s): D69.6 - THROMBOCYTOPENIA, UNSPECIFIED Status: Acute (3) Anemia Code(s): D64.9 - ANEMIA, UNSPECIFIED Status: Acute (4) Sarcoma Code(s): C49.9 - MALIGNANT NEOPLASM OF CONNECTIVE AND SOFT TISSUE, UNSP Status : Acute - Plan 05/14: The patient is having no new complaints. No fever today. He is able to tolerate his meals. Leukopenia is slightly improving. Continue to hold off on Lovenox due to thrombocytopenia. Potassium and magnesium being replaced.
[2019-05-16] MEDS: Levothyroxine 150 MCG TAB PO SCH (06:19)
[2019-05-16] MEDS: COMBIVENT RESPIMAT INH SCH ×3 (06:24→17:03)
[2019-05-16 06:42] LABS: Mean Corpuscular HGB CONC 35.3 g/dL (32.0-36.0); Mean Corpuscular Hemoglobin 30.6 pg (27.0-31.0); Mean Corpuscular Volume 86.6 fL (78.0-98.0); Mean Platelet Volume 9.3 fL (7.4-10.4); Platelet Count 20 thou/uL (130-400); Red Blood Cell (RBC) Count 2.62 mill/uL (4.70-6.10)
[2019-05-16 06:59] LABS: Anion Gap 10 mmol/L (10-20); BUN (Urea Nitrogen) 9 mg/dL (8.4-25.7); Calc. Creatinine Clearance 80 mL/min (70-130); Calcium 7.7 mg/dL (7.8-10.44); Carbon Dioxide 27 mmol/L (23-31); Chloride 106 mmol/L (98-107); Estimated GFR-MDRD 69; Glucose 86 mg/dL (80-115); Magnesium 1.6 mg/dL (1.6-2.6); Sodium 140 mmol/L (136-145); Uric Acid 2.3 mg/dL (3.5-7.2)
[2019-05-16] MEDS: NS 0.9% w/ 20 MEQ KCL 1,000 ML/1,000 ML BAG IV SCH ×3 (07:04→22:58)
[2019-05-16 07:16] LABS: Potassium 2.8 mmol/L (3.5-5.1)
[2019-05-16 07:32] LABS: Band 25 % (5-11); Dohle Bodies SLIGHT; Lymphocytes 24 % (21-51); MDiff Complete? YES; Monocytes 8 % (0-10); Neutrophil 44 % (42-75); Platelet Morphology Comment Appears Decreased; Polychromasia SLIGHT = 2-3 cells (100X) (0-2/hpf)
[2019-05-16] MEDS ORDERED: Potassium Chloride 20 MEQ TAB PO SCH ×3 (08:00→18:00)
[2019-05-16] MEDS ORDERED: Potassium Chloride 20 MEQ in Premix Bag 1 BAG IVPB SCH ×2 (08:00→13:00)
[2019-05-16] MEDS: Sucralfate 1 GM/10 ML UDCUP PO SCH ×4 (08:27→21:18)
[2019-05-16] MEDS: Nystatin 500,000 UNITS/5 ML UDCUP PO SCH ×4 (08:27→21:18)
[2019-05-16] MEDS: Polyethylene Glycol 3350 17 GM Packet PO SCH (08:27)
[2019-05-16] MEDS: Senokot S 8.6-50 MG TAB PO SCH ×2 (08:27→20:46)
[2019-05-16] MEDS: Cefepime 2 GM in Sodium Chloride 0.9% 100 ML IVPB SCH ×4 (08:34→23:54)
[2019-05-16] MEDS: Amlodipine 10 MG TAB PO SCH (08:35)
[2019-05-16] MEDS: Metoclopramide HCl 10 MG TAB PO SCH ×4 (08:35→20:46)
[2019-05-16] MEDS: Amiodarone 200 MG TAB PO SCH (08:35)
[2019-05-16] MEDS: Allopurinol 300 MG TAB PO SCH (08:35)
[2019-05-16] MEDS: Loratadine 10 MG TAB PO SCH (08:35)
[2019-05-16] MEDS: POTASSIUM CHLORIDE 10 MEQ CAP PO SCH ×2 (08:36→16:58)
[2019-05-16] MEDS: Prochlorperazine Maleate 5 MG TAB PO PRN (09:48)
[2019-05-16] MEDS ORDERED: Magnesium Sulfate 3 GM in Sodium Chloride 0.9% 100 ML IVPB SCH (10:00)
[2019-05-16] MEDS: K-Phos Neutral 250 MG TAB PO SCH ×2 (10:33→16:57)
[2019-05-16] MEDS: Magnesium Oxide 250 MG TAB PO SCH ×2 (10:34→20:46)
[2019-05-16 14:27] VITALS: BMI 26.1
[2019-05-16] MEDS: Vancomycin HCl 1.75 GM in Sodium Chloride 0.9% 500 ML IVPB SCH (14:34)
--- NOTE | 2019-05-16 16:09 | PDOC.MOPN ---
Interval History: much better today, ambulatory in [facility] - Vital Signs Vital Signs: Vital Signs (12 hours) Temp Pulse Resp BP Pulse Ox 05/16/19 08:35 75 05/16/19 08:00 98.8 F 75 18 119/66 95 Weight Admit Weight 180 lb 8 oz Weight 182 lb - Physical Exam General: Alert, Oriented x3, No acute distress HEENT: Atraumatic, PERRLA, EOMI, Mucous membr. moist/pink Lungs: Clear to auscultation, Normal air movement Cardiovascular: Regular rate, Normal S1, Normal S2, No murmurs, Gallops, Rubs Abdomen: Normal bowel sounds, Soft, No tenderness, No hepatospenomegaly, No masses Extremities: No clubbing, No cyanosis, No edema, Normal pulses, No tenderness/ swelling Skin: No rashes, No breakdown, No significant lesion Neurological: Normal gait, Normal speech, Strength at 5/5 X4 ext, Normal tone, Sensation intact, Cranial nerves 3-12 NL, Reflexes 2+ - Labs Result Diagrams: 05/16/19 06:15 05/16/19 06:15 Lab results: Laboratory Results - last 24 hr 05/16/19 08:45: Lactate Dehydrogenase 185 05/16/19 06:15: WBC 3.0 L, RBC 2.62 L, Hgb 8.0 L, Hct 22.7 L, MCV 86.6, MCH 30.6 , MCHC 35.3, RDW 14.0, Plt Count 20 L*, MPV 9.3, Neutrophils % (Manual) 44, Band Neuts % (Manual) 25 H, Lymphocytes % (Manual) 24, Monocytes % (Manual) 8, Dohle Bodies SLIGHT, Plt Morphology Comment Appears Decreased L, Polychromasia SLIGHT = 2-3 cells 05/16/19 06:15: Sodium 140, Potassium 2.8 L*, Chloride 106, Carbon Dioxide 27, Anion Gap 10, BUN 9, Creatinine 1.07, Estimated GFR (MDRD) 69, Glucose 86, Uric Acid 2.3 L, Calcium 7.7 L, Magnesium 1.6 05/15/19 16:00: Magnesium 1.6 Status: lab reviewed by me A/P - Problem (1) Neutropenia with fever Current Visit: No Code(s): D70.9 - NEUTROPENIA, UNSPECIFIED; R50.81 - FEVER PRESENTING WITH CONDITIONS CLASSIFIED ELSEWHERE Status: Acute (2) Sarcoma Current Visit: No Code(s): C49.9 - MALIGNANT NEOPLASM OF CONNECTIVE AND SOFT TISSUE, UNSP Status: Acute - Plan Plan: 1. continue electroyte replacement 2. recheck CBC in am 3. hopefully, home tomorrow. 4. follow-up next week for labs.
[2019-05-16] MEDS: Latanoprost 0.005% Ophth Soln 2.5 ml Bottle EA EYE SCH (20:45)
[2019-05-16] MEDS: Mirtazapine 15 MG TAB PO SCH (20:46)
[2019-05-17] MEDS: COMBIVENT RESPIMAT INH SCH ×4 (06:02→21:22)
[2019-05-17] MEDS: Levothyroxine 150 MCG TAB PO SCH (06:02)
[2019-05-17 06:32] LABS: Hemoglobin 7.7 g/dL (14.0-18.0); Mean Corpuscular Hemoglobin 31.1 pg (27.0-31.0); Mean Corpuscular Volume 86.2 fL (78.0-98.0); Platelet Count 19 thou/uL (130-400); Red Blood Cell (RBC) Count 2.49 mill/uL (4.70-6.10); White Blood Cell (WBC) Count 6.9 thou/uL (4.8-10.8)
[2019-05-17 06:40] LABS: Band 26 % (5-11); Lymphocytes 27 % (21-51); MDiff Complete? YES; Metamyelocyte 1 % (0-0); Monocytes 6 % (0-10); Myelocyte 2 % (0-0); Neutrophil 38 % (42-75); Platelet Morphology Comment Appears Decreased
[2019-05-17 06:48] LABS: Anion Gap 10 mmol/L (10-20); BUN (Urea Nitrogen) 7 mg/dL (8.4-25.7); Calc. Creatinine Clearance 89 mL/min (70-130); Calcium 8.2 mg/dL (7.8-10.44); Carbon Dioxide 28 mmol/L (23-31); Chloride 106 mmol/L (98-107); Estimated GFR-MDRD 78; Glucose 89 mg/dL (80-115); Magnesium 1.6 mg/dL (1.6-2.6); Potassium 3.3 mmol/L (3.5-5.1); Sodium 141 mmol/L (136-145); Uric Acid 2.2 mg/dL (3.5-7.2)
--- NOTE | 2019-05-17 08:45 | EKG ---
Test Reason : Blood Pressure : / mmHG Vent. Rate : 096 BPM Atrial Rate : 096 BPM P-R Int : 182 ms QRS Dur : 086 ms QT Int : 340 ms P-R-T Axes : -01 013 -19 degrees QTc Int : 429 ms Normal sinus rhythm Low voltage QRS Cannot rule out Inferior infarct , age undetermined Cannot rule out Anterior infarct , age undetermined Abnormal ECG Confirmed by ESTEPHANIA CESPEDES D.O. ([id number]), social media editor PARVIN GRULLON ([id number]) on 05/17/2019 8:45:22 AM Referred By: Confirmed By:ESTEPHANIA CESPEDES D.O.
[2019-05-17] MEDS: Sucralfate 1 GM/10 ML UDCUP PO SCH ×4 (09:02→21:27)
[2019-05-17] MEDS: Nystatin 500,000 UNITS/5 ML UDCUP PO SCH ×4 (09:02→21:37)
[2019-05-17] MEDS: Magnesium Oxide 250 MG TAB PO SCH ×2 (09:03→21:25)
[2019-05-17] MEDS: Amlodipine 10 MG TAB PO SCH (09:05)
[2019-05-17] MEDS: Amiodarone 200 MG TAB PO SCH (09:05)
[2019-05-17] MEDS: Metoclopramide HCl 10 MG TAB PO SCH ×4 (09:06→21:25)
[2019-05-17] MEDS: Allopurinol 300 MG TAB PO SCH (09:07)
[2019-05-17] MEDS: Loratadine 10 MG TAB PO SCH (09:07)
[2019-05-17] MEDS: Polyethylene Glycol 3350 17 GM Packet PO SCH (09:08)
[2019-05-17] MEDS: K-Phos Neutral 250 MG TAB PO SCH ×2 (09:09→16:30)
[2019-05-17] MEDS: Cefepime 2 GM in Sodium Chloride 0.9% 100 ML IVPB SCH ×2 (09:10→19:41)
[2019-05-17] MEDS: POTASSIUM CHLORIDE 10 MEQ CAP PO SCH ×2 (09:11→17:35)
[2019-05-17] MEDS: Senokot S 8.6-50 MG TAB PO SCH ×2 (09:15→21:24)
--- NOTE | 2019-05-17 11:13 | PDOC.HOSPP ---
- Subjective Encounter Date: 05/16/19 - Objective Vital Signs & Weight: Vital Signs (12 hours) Temp Pulse Resp BP Pulse Ox 05/17/19 09:05 74 05/17/19 08:00 98.4 F 83 18 140/70 95 Weight Admit Weight 180 lb 8 oz Weight 182 lb I&O: 05/16/19 05/17/19 05/18/19 06:59 06:59 06:59 Intake Total 3119 2300 3000 Output Total 2800 2100 1950 Balance 236 694 4145 Result Diagrams: 05/17/19 06:10 05/17/19 06:10 Hospitalist ROS - Medication Medications: Active Medications Generic Name Dose Route Start Last Admin Trade Name Freq PRN Reason Stop Dose Admin Acetaminophen 650 mg 05/13/19 04:53 05/14/19 00:05 Tylenol PO 650 mg Q4H PRN Administration Headache/Fever/Mild Pain (1-3) Allopurinol 300 mg 05/13/19 09:00 05/17/19 09:07 Zyloprim PO 300 mg DAILY NILDA Administration Amiodarone HCl 200 mg 05/13/19 09:00 05/17/19 09:05 Cordarone PO 200 mg DAILY NILDA Administration Amlodipine Besylate 10 mg 05/13/19 09:00 05/17/19 09:05 Norvasc PO 10 mg DAILY NILDA Administration Fentanyl 12 mcg 05/13/19 06:00 05/16/19 06:19 Duragesic TD 12 mcg Q3D@0600 NILDA Administration Cefepime HCl 2 gm/ Sodium 100 mls @ 200 mls/hr 05/13/19 08:00 05/17/19 09:10 Chloride IVPB 100 mls 0800,1600,2359 NILDA Administration Potassium Chloride/Sodium Chloride 1,000 ml in 1,000 mls @ 100 mls/hr 10:45 05/16/19 22:58 Ns 0.9% W/ 20 Meq Kcl IV 1,000 mls .Q10H NILDA Administration Promethazine HCl 12.5 mg/ 50.5 mls @ 202 mls/hr 05/15/19 10:46 05/15/19 15:01 Sodium Chloride IVPB 50.5 mls Q6H PRN Administration Nausea Vancomycin HCl 1.75 gm/ Sodium 500 mls @ 333.333 mls/hr 05/15/19 12:00 14:34 Chloride IVPB 500 mls 1200 NILDA Administration Latanoprost 1 drop 05/13/19 21:00 05/16/19 20:45 Xalatan 0.005% Ophth Soln EA EYE 1 drop HS NILDA Administration Levothyroxine Sodium 150 mcg 05/13/19 06:00 05/17/19 06:02 Synthroid PO 150 mcg 0600 NILDA Administration Loratadine 10 mg 05/14/19 09:00 05/17/19 09:07 Claritin PO 10 mg DAILY NILDA Administration Magnesium Oxide 500 mg 05/13/19 21:00 05/17/19 09:03 Magnesium Oxide PO 500 mg BID NILDA Administration Methylphenidate HCl 10 mg 05/13/19 07:00 05/17/19 06:56 Ritalin PO 10 mg 0700,1400 NILDA Administration Metoclopramide HCl 10 mg 05/14/19 13:00 05/17/19 09:06 Reglan PO 10 mg QID NILDA Administration Mirtazapine 15 mg 05/13/19 21:00 05/16/19 20:46 Remeron PO 15 mg HS NILDA Administration Nystatin 500,000 units 05/13/19 17:00 05/17/19 09:02 Mycostatin PO Not Given QID NILDA Ondansetron HCl 4 mg 05/13/19 04:53 05/15/19 09:10 Zofran IVP 4 mg Q6H PRN Administration Nausea/Vomiting Pantoprazole Sodium 40 mg 05/13/19 09:00 05/17/19 09:05 Protonix PO 40 mg DAILY NILDA Administration Potassium Chloride 1 each 05/14/19 08:00 05/17/19 09:11 10 Meq Cap PO 1 each BID-WM NILDA Administration Combivent Respimat 1 each 05/13/19 23:59 05/17/19 06:02 20 Mcg/100 Mcg Per INH 1 each Actuation Q6HR NILDA Administration Phosphorus 500 mg 05/13/19 07:30 05/17/19 09:09 Kphos Neutral PO 500 mg BID-AC NILDA Administration Polyethylene Glycol 17 gm 05/14/19 09:00 05/17/19 09:08 Miralax PO Not Given DAILY NILDA Prochlorperazine Maleate 10 mg 05/13/19 14:43 05/16/19 09:48 Compazine PO 10 mg Q6H PRN Administration Nausea/Vomiting Senna/Docusate Sodium 2 tab 05/13/19 21:00 05/17/19 09:15 Senokot S PO 1 tab BID NILDA Administration Sodium Chloride 10 ml 05/15/19 21:00 05/17/19 09:15 Flush - Normal Saline IVF 10 ml Q12HR NILDA Administration Sucralfate 1 gm 05/13/19 09:00 05/17/19 09:02 Carafate PO 1 gm QID NILDA Administration - Exam General Appearance: awake alert Neck: supple, no JVD Heart: RRR Respiratory: no tachypnea, normal percussion Gastrointestinal: soft, non-tender Hosp A/P (1) Neutropenia with fever Code(s): D70.9 - NEUTROPENIA, UNSPECIFIED; R50.81 - FEVER PRESENTING WITH CONDITIONS CLASSIFIED ELSEWHERE Status: Acute (2) Thrombocytopenia Code(s): D69.6 - THROMBOCYTOPENIA, UNSPECIFIED Status: Acute (3) Anemia Code(s): D64.9 - ANEMIA, UNSPECIFIED Status: Acute (4) Sarcoma Code(s): C49.9 - MALIGNANT NEOPLASM OF CONNECTIVE AND SOFT TISSUE, UNSP Status : Acute - Plan 05/14: The patient is having no new complaints. No fever today. He is able to tolerate his meals. Leukopenia is slightly improving. Continue to hold off on Lovenox due to thrombocytopenia. Potassium and magnesium being replaced. 05/15: Hypokalemia and hypomagnesemia present. Replace. Continue to monitor CBC.
[2019-05-17] MEDS ORDERED: Magnesium Sulfate 3 GM in Sodium Chloride 0.9% 100 ML IVPB SCH (11:15)
--- NOTE | 2019-05-17 11:15 | PDOC.HOSPP ---
- Subjective Encounter Date: 05/17/19 Subjective: Feeling better. - Objective Vital Signs & Weight: Vital Signs (12 hours) Temp Pulse Resp BP Pulse Ox 05/17/19 09:05 74 05/17/19 08:00 98.4 F 83 18 140/70 95 Weight Admit Weight 180 lb 8 oz Weight 182 lb I&O: 05/16/19 05/17/19 05/18/19 06:59 06:59 06:59 Intake Total 3119 2300 3000 Output Total 2800 2100 1950 Balance 873 351 3026 Result Diagrams: 05/17/19 06:10 05/17/19 06:10 Hospitalist ROS - Medication Medications: Active Medications Generic Name Dose Route Start Last Admin Trade Name Freq PRN Reason Stop Dose Admin Acetaminophen 650 mg 05/13/19 04:53 05/14/19 00:05 Tylenol PO 650 mg Q4H PRN Administration Headache/Fever/Mild Pain (1-3) Allopurinol 300 mg 05/13/19 09:00 05/17/19 09:07 Zyloprim PO 300 mg DAILY NILDA Administration Amiodarone HCl 200 mg 05/13/19 09:00 05/17/19 09:05 Cordarone PO 200 mg DAILY NILDA Administration Amlodipine Besylate 10 mg 05/13/19 09:00 05/17/19 09:05 Norvasc PO 10 mg DAILY NILDA Administration Fentanyl 12 mcg 05/13/19 06:00 05/16/19 06:19 Duragesic TD 12 mcg Q3D@0600 NILDA Administration Cefepime HCl 2 gm/ Sodium 100 mls @ 200 mls/hr 05/13/19 08:00 05/17/19 09:10 Chloride IVPB 100 mls 0800,1600,2359 NILDA Administration Potassium Chloride/Sodium Chloride 1,000 ml in 1,000 mls @ 100 mls/hr 10:45 05/16/19 22:58 Ns 0.9% W/ 20 Meq Kcl IV 1,000 mls .Q10H NILDA Administration Promethazine HCl 12.5 mg/ 50.5 mls @ 202 mls/hr 05/15/19 10:46 05/15/19 15:01 Sodium Chloride IVPB 50.5 mls Q6H PRN Administration Nausea Vancomycin HCl 1.75 gm/ Sodium 500 mls @ 333.333 mls/hr 05/15/19 12:00 14:34 Chloride IVPB 500 mls 1200 NILDA Administration Latanoprost 1 drop 05/13/19 21:00 05/16/19 20:45 Xalatan 0.005% Ophth Soln EA EYE 1 drop HS NILDA Administration Levothyroxine Sodium 150 mcg 05/13/19 06:00 05/17/19 06:02 Synthroid PO 150 mcg 0600 NILDA Administration Loratadine 10 mg 05/14/19 09:00 05/17/19 09:07 Claritin PO 10 mg DAILY NILDA Administration Magnesium Oxide 500 mg 05/13/19 21:00 05/17/19 09:03 Magnesium Oxide PO 500 mg BID NILDA Administration Methylphenidate HCl 10 mg 05/13/19 07:00 05/17/19 06:56 Ritalin PO 10 mg 0700,1400 NILDA Administration Metoclopramide HCl 10 mg 05/14/19 13:00 05/17/19 09:06 Reglan PO 10 mg QID NILDA Administration Mirtazapine 15 mg 05/13/19 21:00 05/16/19 20:46 Remeron PO 15 mg HS NILDA Administration Nystatin 500,000 units 05/13/19 17:00 05/17/19 09:02 Mycostatin PO Not Given QID NILDA Ondansetron HCl 4 mg 05/13/19 04:53 05/15/19 09:10 Zofran IVP 4 mg Q6H PRN Administration Nausea/Vomiting Pantoprazole Sodium 40 mg 05/13/19 09:00 05/17/19 09:05 Protonix PO 40 mg DAILY NILDA Administration Potassium Chloride 1 each 05/14/19 08:00 05/17/19 09:11 10 Meq Cap PO 1 each BID-WM NILDA Administration Combivent Respimat 1 each 05/13/19 23:59 05/17/19 06:02 20 Mcg/100 Mcg Per INH 1 each Actuation Q6HR NILDA Administration Phosphorus 500 mg 05/13/19 07:30 05/17/19 09:09 Kphos Neutral PO 500 mg BID-AC NILDA Administration Polyethylene Glycol 17 gm 05/14/19 09:00 05/17/19 09:08 Miralax PO Not Given DAILY NILDA Prochlorperazine Maleate 10 mg 05/13/19 14:43 05/16/19 09:48 Compazine PO 10 mg Q6H PRN Administration Nausea/Vomiting Senna/Docusate Sodium 2 tab 05/13/19 21:00 05/17/19 09:15 Senokot S PO 1 tab BID NILDA Administration Sodium Chloride 10 ml 05/15/19 21:00 05/17/19 09:15 Flush - Normal Saline IVF 10 ml Q12HR NILDA Administration Sucralfate 1 gm 05/13/19 09:00 05/17/19 09:02 Carafate PO 1 gm QID NILDA Administration - Exam General Appearance: awake alert ENT: normocephalic atraumatic Neck: supple, symmetric, no JVD Respiratory: normal chest expansion, no tachypnea Extremities: no cyanosis, no clubbing Skin: no rashes Neurological: cranial nerve grossly intact, no new deficit Psychiatric: normal affect, A&O x 3 Hosp A/P (1) Neutropenia with fever Code(s): D70.9 - NEUTROPENIA, UNSPECIFIED; R50.81 - FEVER PRESENTING WITH CONDITIONS CLASSIFIED ELSEWHERE Status: Acute (2) Thrombocytopenia Code(s): D69.6 - THROMBOCYTOPENIA, UNSPECIFIED Status: Acute (3) Anemia Code(s): D64.9 - ANEMIA, UNSPECIFIED Status: Acute (4) Sarcoma Code(s): C49.9 - MALIGNANT NEOPLASM OF CONNECTIVE AND SOFT TISSUE, UNSP Status : Acute - Plan 05/14: The patient is having no new complaints. No fever today. He is able to tolerate his meals. Leukopenia is slightly improving. Continue to hold off on Lovenox due to thrombocytopenia. Potassium and magnesium being replaced. 05/15: Hypokalemia and hypomagnesemia present. Replace. Continue to monitor CBC. 05/16: Neutropenia resolved. Transfuse one unit of PRBCs for Hb of 7.7. Continue to replace Mag and K.
[2019-05-17] MEDS: NS 0.9% w/ 20 MEQ KCL 1,000 ML/1,000 ML BAG IV SCH ×2 (11:36→23:22)
[2019-05-17] MEDS: Activase 2 MG VIAL CATH SCH ×2 (12:48→13:46)
[2019-05-17] MEDS: Sterile Water 10 ML VIAL IVP PRN ×2 (12:49→13:46)
[2019-05-17 13:18] LABS: Vancomycin, Trough 13.6 ug/mL
[2019-05-17] MEDS: Vancomycin HCl 1.75 GM in Sodium Chloride 0.9% 500 ML IVPB SCH (16:05)
[2019-05-17] MEDS: Potassium Chloride 20 MEQ in Premix Bag 1 BAG IVPB SCH ×2 (16:25→21:23)
[2019-05-17] MEDS: Mirtazapine 15 MG TAB PO SCH (21:25)
[2019-05-17] MEDS: Latanoprost 0.005% Ophth Soln 2.5 ml Bottle EA EYE SCH (21:29)
[2019-05-17 22:31] VITALS: TEMP 98.8
[2019-05-17 22:50] VITALS: BP 115/66
[2019-05-18] MEDS: COMBIVENT RESPIMAT INH SCH ×3 (00:54→17:14)
[2019-05-18] MEDS: Cefepime 2 GM in Sodium Chloride 0.9% 100 ML IVPB SCH ×2 (00:54→07:58)
[2019-05-18 04:28] LABS: Hemoglobin 9.5 g/dL (14.0-18.0); Mean Corpuscular HGB CONC 35.5 g/dL (32.0-36.0); Mean Corpuscular Hemoglobin 30.9 pg (27.0-31.0); Platelet Count 18 thou/uL (130-400); RBC Distribution Width 13.9 % (11.5-14.5); Red Blood Cell (RBC) Count 3.07 mill/uL (4.70-6.10)
[2019-05-18 04:46] LABS: Band 27 % (5-11); Lymphocytes 19 % (21-51); MDiff Complete? YES; Metamyelocyte 4 % (0-0); Monocytes 11 % (0-10); Neutrophil 39 % (42-75); Platelet Morphology Comment Appears Decreased; RBC Morphology Normal
[2019-05-18 04:48] LABS: Anion Gap 14 mmol/L (10-20); BUN (Urea Nitrogen) 9 mg/dL (8.4-25.7); Calc. Creatinine Clearance 84 mL/min (70-130); Calcium 8.2 mg/dL (7.8-10.44); Carbon Dioxide 24 mmol/L (23-31); Chloride 106 mmol/L (98-107); Estimated GFR-MDRD 73; Glucose 86 mg/dL (80-115); Magnesium 1.8 mg/dL (1.6-2.6); Potassium 3.6 mmol/L (3.5-5.1); Sodium 140 mmol/L (136-145); Uric Acid 2.3 mg/dL (3.5-7.2)
[2019-05-18] MEDS: Levothyroxine 150 MCG TAB PO SCH (05:48)
[2019-05-18] MEDS: K-Phos Neutral 250 MG TAB PO SCH (07:59)
[2019-05-18] MEDS: POTASSIUM CHLORIDE 10 MEQ CAP PO SCH (08:00)
[2019-05-18] MEDS: Amlodipine 10 MG TAB PO SCH (08:01)
[2019-05-18] MEDS: Metoclopramide HCl 10 MG TAB PO SCH (08:01)
[2019-05-18] MEDS: Senokot S 8.6-50 MG TAB PO SCH (08:02)
[2019-05-18] MEDS: Magnesium Oxide 250 MG TAB PO SCH (08:02)
[2019-05-18] MEDS: Allopurinol 300 MG TAB PO SCH (08:03)
[2019-05-18] MEDS: Loratadine 10 MG TAB PO SCH (08:04)
[2019-05-18] MEDS: Sucralfate 1 GM/10 ML UDCUP PO SCH (08:11)
[2019-05-18] MEDS: Nystatin 500,000 UNITS/5 ML UDCUP PO SCH (08:51)
[2019-05-18] MEDS: Amiodarone 200 MG TAB PO SCH (08:51)
[2019-05-18] MEDS: Polyethylene Glycol 3350 17 GM Packet PO SCH (08:51)
[2019-05-18] MEDS: NS 0.9% w/ 20 MEQ KCL 1,000 ML/1,000 ML BAG IV SCH (09:44)
--- NOTE | 2019-05-18 14:12 | DIS ---
DATE OF ADMISSION: 05/12/2019 DATE OF DISCHARGE: 05/18/2019 DISCHARGE DIAGNOSES: 1. Neutropenia with fever. 2. Thrombocytopenia. 3. Anemia. 4. Sarcoma. DISCHARGE MEDICATIONS: 1. Lovenox 120 units subcu at bedtime. This will be placed on hold due to low platelet levels until further notice by the patient's oncologist. 2. Indomethacin 25 mg orally every 6 hours as needed for gout. 3. Combivent 1 puff inhaled q.i.d. 4. Potassium chloride 20 mEq orally daily. 5. Carafate 1 g orally 4 times a day. 6. Senna Plus tablet 2 tablets twice daily as needed for constipation. 7. Compazine 10 mg orally every 6 hours as needed for nausea. 8. Glycolax 17 g orally daily as needed for constipation. 9. Pantoprazole 40 mg orally daily. 10. Zofran 8 mg orally every 8 hours as needed for nausea. 11. Nystatin 100,000 unit/mL, take 5 mL swish and swallow 4 times a day. 12. Mirtazapine 15 mg orally at night. 13. Reglan 10 mg orally 4 times a day as needed for nausea. 14. Methylphenidate 10 mg orally twice daily. 15. Magnesium oxide 500 mg orally daily. 16. Loratadine 10 mg orally daily. 17. Levothyroxine 150 mcg orally daily. 18. Latanoprost eye drops 1 drop in each eye daily. 19. Potassium phosphate 500 mg orally twice daily. 20. Dilaudid 2 mg orally every 4 hours as needed for pain. 21. Fentanyl 12 mcg patch every three days. 22. Amlodipine 10 mg orally daily. 23. Amiodarone 200 mg orally daily. 24. Allopurinol 300 mg tablet orally daily. HISTORY OF PRESENT ILLNESS AND HOSPITAL COURSE: The patient is a 64-year-old male with history of high-grade mediastinal sarcoma, who recently completed a 5-day regimen of chemotherapy. The patient presented to the clinic for followup and his white count was found to be 0.5 and platelet count of 39,000. He had no fever at that time, but after returning home, his family reported a fever of 100.3. The patient was sent to the ER for further evaluation. He was admitted to the hospital with impression of neutropenic fever and pancytopenia related to chemotherapy. He was placed on empiric IV antibiotics. Cultures were obtained, but were unremarkable. He received 2 units of packed RBCs and 1 unit of platelet during his hospital stay. He also received multiple rounds of replacement of his potassium, magnesium, and phosphorus. He received IV antibiotics for a total of 5 days. His leukocyte count improved and there was no further episodes of fever and no evidence of sepsis at this time. The patient has been instructed to follow up with his oncologist and PCP within 1 week. His platelet levels on the day of discharge were 18, and his Lovenox, which he has been taken for pulmonary embolism has been placed on hold. This was discussed with Oncology. Job ID: [id number]
[2019-05-18] MEDS: Vancomycin HCl 1.75 GM in Sodium Chloride 0.9% 500 ML IVPB SCH (17:15)
== END 2019-05-18 12:11 | disposition home health service (06) | DRG 809 ==
LOC: ERS 20:38 → ONC 23:06
PROVIDERS: ADMIT Internal Medicine; ATTEND Internal Medicine
PROC: 30233N1 Transfusion of Nonautologous Red Blood Cells into Peripheral Vein, Percutaneous Approach (ICD-10-PCS; principal; 2019-05-14)
PROC: 30233R1 Transfusion of Nonautologous Platelets into Peripheral Vein, Percutaneous Approach (ICD-10-PCS; 2019-05-14)
DX: D61.810 Antineoplastic chemotherapy induced pancytopenia (principal); C38.3 Malignant neoplasm of mediastinum, part unspecified; Z66 Do not resuscitate; E89.0 Postprocedural hypothyroidism; E87.6 Hypokalemia; E83.42 Hypomagnesemia; R50.81 Fever presenting with conditions classified elsewhere; T45.1X5A Adverse effect of antineoplastic and immunosuppressive drugs, initial encounter; Z79.899 Other long term (current) drug therapy; Z79.890 Hormone replacement therapy; Z85.850 Personal history of malignant neoplasm of thyroid
CPT/HCPCS: 36415; 36430; 71045; 80048; 80202; 81001; 82550; 83605; 83615; 83735; 84439; 84443; 84484; 84550; 85007; 85025; 85027; 85610; 85730; 86850; 86900; 86901; 87040; 93005; 96365; 96367; J0692; J2405; J2550; J2997; J3370; J3475; J3480; J3490; J7050; P9016; P9035; Q0164

== ENCOUNTER → 2019-06-24 | Day surgery (SDC) | payer BC ==
[~2019-06-24] MED LIST changes: +Acetaminophen 500 MG TAB PO SCH; -Iopamidol 370 76% 100 ML VIAL ONE; +Sodium Chloride 0.9% 20 ML ONE; +diphenhydrAMINE 25 MG CAP PO SCH
[2019-06-24 15:05] VITALS: BP 119/56; TEMP 98.8
[2019-06-24 15:21] LABS: #Eosinphils 0.1 thou/uL (0.0-0.7); #Lymphocytes 0.9 thou/uL (1.20-3.40); #Monocytes 0.7 thou/uL (0.11-0.59); #Neutrophils 7.4 thou/uL (1.40-6.50); %Basophils 0.5 % (0.0-1.0); %Eosinophils 0.8 % (0.0-10.0); %Lymphocytes 10.2 % (21.0-51.0); %Monocytes 7.3 % (0.0-10.0); %Neutrophils 81.3 % (42.0-75.0); Hemoglobin 8.5 g/dL (14.0-18.0); Mean Corpuscular HGB CONC 35.7 g/dL (32.0-36.0); Mean Corpuscular Hemoglobin 32.9 pg (27.0-31.0); Mean Corpuscular Volume 92.1 fL (78.0-98.0); Mean Platelet Volume 5.7 fL (7.4-10.4); Platelet Count 179 thou/uL (130-400); RBC Distribution Width 15.4 % (11.5-14.5); Red Blood Cell (RBC) Count 2.59 mill/uL (4.70-6.10); White Blood Cell (WBC) Count 9.2 thou/uL (4.8-10.8)
== END ==
LOC: ONC/OP 08:04
PROVIDERS: ATTEND Internal Medicine Hematology & Oncology
PROC: 30233N1 Transfusion of Nonautologous Red Blood Cells into Peripheral Vein, Percutaneous Approach (ICD-10-PCS; principal; 2019-06-24)
DX: D64.9 Anemia, unspecified (principal); D69.6 Thrombocytopenia, unspecified
CPT/HCPCS: 36430; 85025; 86850; 86900; 86901; J1642; P9016; Q0163

== ENCOUNTER 2019-11-11 15:08 | Outpatient (CLI) | payer BC ==
--- NOTE | 2019-11-11 16:03 | ULT ---
RENAL ULTRASOUND: 11/11/19 INDICATIONS: Chronic kidney disease. FINDINGS: Right kidney measures 9.6 cm in length. Left kidney measures 11.2 cm in length. Both kidneys appear unremarkable. Cortical thickenings and cortical echogenicity appears normally pre served bilaterally. No mass or cystic lesion. Urinary bladder is distended and appears unremarkable. IMPRESSION: Unremarkable renal ultrasound. POS: AH
== END 2019-11-11 15:09 | disposition home or self-care (01) ==
LOC: BICULT 15:08
PROVIDERS: ATTEND Internal Medicine Nephrology
DX: N18.3 Chronic kidney disease, stage 3 (moderate) (principal)
CPT/HCPCS: 76770

== ENCOUNTER 2021-10-22 22:23 | Emergency (ER) | payer BC, MEDICARE ==
[2021-10-22 23:17] LABS: #Eosinphils 0.1 thou/uL (0.0-0.7); #Lymphocytes 1.5 thou/uL (1.20-3.40); #Monocytes 0.6 thou/uL (0.11-0.59); #Neutrophils 3.3 thou/uL (1.40-6.50); %Eosinophils 2.1 % (0.0-10.0); %Lymphocytes 27.1 % (21.0-51.0); %Monocytes 10.5 % (0.0-10.0); %Neutrophils 60.3 % (42.0-75.0); Hemoglobin 12.7 g/dL (14.0-18.0); Mean Corpuscular HGB CONC 37.7 g/dL (32.0-36.0); Mean Corpuscular Volume 98.2 fL (78.0-98.0); Mean Platelet Volume 7.1 fL (7.4-10.4); Platelet Count 150 thou/uL (130-400); RBC Distribution Width 13.2 % (11.5-14.5); Red Blood Cell (RBC) Count 3.44 mill/uL (4.70-6.10); White Blood Cell (WBC) Count 5.5 thou/uL (4.8-10.8)
[2021-10-22 23:23] LABS: PTT 31.7 sec (22.9-36.1); Prothrombin Time 13.5 sec (12.0-14.7)
[2021-10-22 23:24] LABS: D-Dimer Test 0.34 *mcg/mL (0.27-0.43)
[2021-10-22 23:31] LABS: ALT (SGPT) 28 U/L (8-55); AST (SGOT) 21 U/L (5-34); Albumin 4.1 g/dL (3.4-4.8); Alkaline Phosphatase 67 U/L (40-110); Anion Gap 15 mmol/L (10-20); BUN (Urea Nitrogen) 25 mg/dL (8.4-25.7); Bilirubin, Total 0.7 mg/dL (0.2-1.2); Calc. Creatinine Clearance 0 mL/min (70-130); Calcium 9.3 mg/dL (7.8-10.44); Carbon Dioxide 24 mmol/L (23-31); Chloride 103 mmol/L (98-107); Estimated GFR 38; Globulin 2.2 g/dL (2.4-3.5); Glucose 164 mg/dL (80-115); Potassium 3.4 mmol/L (3.5-5.1); Protein, Total 6.3 g/dL (5.8-8.1); Sodium 139 mmol/L (136-145)
== END 2021-10-23 00:38 | disposition home or self-care (01) ==
LOC: ERS 22:23
DX: M77.9 Enthesopathy, unspecified (principal); E03.9 Hypothyroidism, unspecified; Z87.891 Personal history of nicotine dependence; Z79.899 Other long term (current) drug therapy
CPT/HCPCS: 36415; 80053; 85025; 85379; 85610; 85730; 93005

== ENCOUNTER 2022-01-29 12:21 | Inpatient (IN) | payer BC, MEDICARE ==
[~2022-01-29 12:21] MED LIST changes: -Acetaminophen 500 MG TAB PO SCH; +Iopamidol-370 76% 500 ML 1 ML ONE; -Sodium Chloride 0.9% 20 ML ONE; -diphenhydrAMINE 25 MG CAP PO SCH
[2022-01-29 13:00] LABS: #Lymphocytes 1.3 thou/uL (1.20-3.40); #Monocytes 1.8 thou/uL (0.11-0.59); #Neutrophils 15.1 thou/uL (1.40-6.50); %Eosinophils 0.2 % (0.0-10.0); %Monocytes 9.6 % (0.0-10.0); %Neutrophils 83.2 % (42.0-75.0); Hemoglobin 14.5 g/dL (14.0-18.0); Mean Corpuscular HGB CONC 35.4 g/dL (32.0-36.0); Mean Corpuscular Hemoglobin 35.2 pg (27.0-31.0); Mean Corpuscular Volume 99.3 fl (78.0-98.0); Mean Platelet Volume 7.1 fL (7.4-10.4); Platelet Count 142 10x3/uL (130-400); RBC Distribution Width 13.1 % (11.5-14.5); Red Blood Cell (RBC) Count 4.14 mill/uL (4.70-6.10); White Blood Cell (WBC) Count 18.1 10x3/uL (4.8-10.8)
[2022-01-29 13:11] LABS: Bilirubin Negative (Negative); Blood, Urine Negative (Negative); Clarity Clear (Clear); Glucose, Urine (Dipstick) 100 mg/dL (Negative); Ketone, Urine Negative (Negative); Leukocyte Negative Leu/uL (Negative); Nitrite Negative (Negative); Protein, Urine (Dipstick) 20 mg/dL (Neg-Trace); Specific Gravity, Urine 1.007 (1.002-1.036); Urobilinogen Normal mg/dL (Less than 2)
[2022-01-29 13:22] LABS: ALT (SGPT) 25 U/L (8-55); AST (SGOT) 15 U/L (5-34); Albumin 4.3 g/dL (3.4-4.8); Alkaline Phosphatase 85 U/L (40-110); Anion Gap 14 mmol/L (10-20); BUN (Urea Nitrogen) 17 mg/dL (8.4-25.7); Calc. Creatinine Clearance 0 mL/min (70-130); Calcium 9.5 mg/dL (7.8-10.44); Carbon Dioxide 25 mmol/L (23-31); Chloride 100 mmol/L (98-107); Estimated GFR 42; Globulin 2.8 g/dL (2.4-3.5); Glucose 119 mg/dL (80-115); Potassium 3.3 mmol/L (3.5-5.1); Protein, Total 7.1 g/dL (5.8-8.1); Sodium 136 mmol/L (136-145)
[2022-01-29] MEDS ORDERED: Acetaminophen 500 MG TAB ONE (13:25)
[2022-01-29] MEDS ORDERED: Vancomycin 1 GM/200 ML (FROZEN) BAG ONE (14:43)
[2022-01-29] MEDS ORDERED: Potassium Chloride 20 MEQ TAB PO SCH (16:01)
[2022-01-29] MEDS ORDERED: Senokot S 8.6-50 MG TAB PO PRN (16:03)
[2022-01-29] MEDS ORDERED: Acetaminophen 325 MG TAB PO PRN (16:03)
[2022-01-29] MEDS ORDERED: Ondansetron ODT 4 MG TAB PO PRN (16:03)
[2022-01-29] MEDS ORDERED: Ondansetron PF 4 MG/2 ML Vial IVP PRN (16:03)
[2022-01-29 16:26] LABS: Magnesium 2.1 mg/dL (1.6-2.6)
[2022-01-29] MEDS: Sodium Chloride 0.9% 1,000 ML IV SCH (16:29)
[2022-01-29 16:49] VITALS: BMI 30.9
[2022-01-29] MEDS ORDERED: Vancomycin 1 GM in Premix Bag 1 BAG IVPB SCH (17:15)
[2022-01-29 18:00] LABS: SARS-CoV-2 NAA Rapid Test Not Detected (NotDetected)
[2022-01-29] MEDS ORDERED: Indomethacin 25 mg Capsule PO PRN (18:52)
[2022-01-29] MEDS ORDERED: Latanoprost 0.005% Ophth Soln 2.5 ml Bottle EA EYE SCH (21:00)
[2022-01-29] MEDS ORDERED: Mirtazapine 15 MG TAB PO SCH (21:00)
[2022-01-29] MEDS ORDERED: VANCOMYCIN 1.25 GM/250 ML BAG 1.25 GM in Premix Bag 1 BAG IVPB SCH (21:00)
[2022-01-29] MEDS ORDERED: Apixaban 5 MG TAB PO SCH (21:00)
[2022-01-30] MEDS: Sodium Chloride 0.9% 1,000 ML IV SCH (05:00)
[2022-01-30] MEDS ORDERED: Levothyroxine 150 MCG TAB PO SCH ×2 (05:00→06:00)
[2022-01-30 05:54] LABS: #Eosinphils 0.1 thou/uL (0.0-0.7); #Lymphocytes 1.1 thou/uL (1.20-3.40); #Monocytes 0.6 thou/uL (0.11-0.59); #Neutrophils 6.6 thou/uL (1.40-6.50); %Basophils 0.1 % (0.0-1.0); %Eosinophils 1.5 % (0.0-10.0); %Monocytes 7.3 % (0.0-10.0); %Neutrophils 78.1 % (42.0-75.0); Hemoglobin 11.9 g/dL (14.0-18.0); Mean Corpuscular HGB CONC 34.8 g/dL (32.0-36.0); Mean Corpuscular Hemoglobin 35.1 pg (27.0-31.0); Mean Platelet Volume 7.5 fL (7.4-10.4); Platelet Count 122 10x3/uL (130-400); RBC Distribution Width 13.2 % (11.5-14.5); Red Blood Cell (RBC) Count 3.39 mill/uL (4.70-6.10); White Blood Cell (WBC) Count 8.5 10x3/uL (4.8-10.8)
[2022-01-30 06:14] LABS: Anion Gap 9 mmol/L (10-20); BUN (Urea Nitrogen) 19 mg/dL (8.4-25.7); Calc. Creatinine Clearance 65 mL/min (70-130); Calcium 8.6 mg/dL (7.8-10.44); Carbon Dioxide 24 mmol/L (23-31); Chloride 110 mmol/L (98-107); Estimated GFR 50; Glucose 127 mg/dL (80-115); Potassium 3.5 mmol/L (3.5-5.1); Sodium 139 mmol/L (136-145)
[2022-01-30] MEDS ORDERED: Allopurinol 300 MG TAB PO SCH ×2 (07:00→09:00)
[2022-01-30] MEDS ORDERED: Loratadine 10 MG TAB PO SCH ×2 (07:00→09:00)
[2022-01-30] MEDS ORDERED: Apixaban 5 MG TAB PO SCH (07:00)
[2022-01-30] MEDS ORDERED: VANCOMYCIN 1.25 GM/250 ML BAG 1.25 GM in Premix Bag 1 BAG IVPB SCH (17:00)
[2022-01-30 19:42] VITALS: BP 126/75; TEMP 97.9
== END 2022-01-30 20:28 | disposition home or self-care (01) | DRG 690 ==
LOC: ERS 12:21 → MSONC 15:26
PROVIDERS: ADMIT Internal Medicine; ATTEND Internal Medicine
DX: N10 Acute pyelonephritis (principal); N17.9 Acute kidney failure, unspecified; N18.30 Chronic kidney disease, stage 3 unspecified; E87.6 Hypokalemia; E78.5 Hyperlipidemia, unspecified; M10.9 Gout, unspecified; Z86.718 Personal history of other venous thrombosis and embolism; N41.9 Inflammatory disease of prostate, unspecified; Z79.899 Other long term (current) drug therapy; Z92.3 Personal history of irradiation; Z92.21 Personal history of antineoplastic chemotherapy; Z85.89 Personal history of malignant neoplasm of other organs and systems; Z87.891 Personal history of nicotine dependence
CPT/HCPCS: 36415; 74177; 80048; 80053; 81003; 83605; 83615; 83735; 85025; 87040; 87086; J1956; J3370; J3370-JW; J7050; Q9967

== ENCOUNTER 2024-02-05 14:26 | Outpatient (CLI) | payer BC | END 2024-02-05 14:27 | disposition home or self-care (01) | LOC: BICMAMMO 14:26 | PROVIDERS: ATTEND Internal Medicine | DX: M85.89 Other specified disorders of bone density and structure, multiple sites (principal); M81.0 Age-related osteoporosis without current pathological fracture | CPT/HCPCS: 77080 ==